=== PATIENT | female | born 1960 | race African-American/Black ===

== ENCOUNTER 2017-07-01 19:07 | Emergency (ER) | payer MEDICARE, MEDICAID ==
[2017-07-01] MEDS ORDERED: FUROSEMIDE 40 MG/4 ML VIAL. IVP (20:15)
[2017-07-01 21:15] LABS: ADD MAN DIFF? NO
[2017-07-01 21:24] LABS: BASO % 1 % (0-3); EOS # 0.2 x10^3/uL (0.0-0.7); EOS % 3 % (0-3); HEMATOCRIT 37.8 % (36.0-47.0); HEMOGLOBIN 12.3 g/dL (12.0-15.5); LYMPH # 2.8 x10^3/uL (1.0-4.8); LYMPH % 42 % (24-48); MEAN CORPUSCULAR HEMOGLOBIN 28 pg (25-35); MEAN CORPUSCULAR HGB CONC 33 g/dL (31-37); MEAN CORPUSCULAR VOLUME 85 fL (79-100); MONO # 0.5 x10^3/uL (0.0-1.1); MONO % 8 % (0-9); NEUT # 3.1 x10^3uL (1.8-7.7); NEUT % 46 % (31-73); PLATELET COUNT 152 x10^3/uL (140-400); RED BLOOD COUNT 4.45 x10^6/uL (3.50-5.40); RED CELL DISTRIBUTION WIDTH 14.3 % (11.5-14.5); WHITE BLOOD COUNT 6.8 x10^3/uL (4.0-11.0)
[2017-07-01 21:26] LABS: ANION GAP 7 (6-14); BLOOD UREA NITROGEN 17 mg/dL (7-20); BUN/CREATININE RATIO 17 (6-20); CARBON DIOXIDE 29 mmol/L (21-32); CHLORIDE 104 mmol/L (98-107); GFR 69.4; GLUCOSE 95 mg/dL (70-99); POTASSIUM 3.6 mmol/L (3.5-5.1); SODIUM 140 mmol/L (136-145)
[2017-07-01 21:32] LABS: ALBUMIN/GLOBULIN RATIO 0.9 (1.0-1.7); ALK PHOS 121 U/L (46-116); ALT (SGPT) 22 U/L (14-59); AST (SGOT) 20 U/L (15-37); TOTAL BILIRUBIN 0.3 mg/dL (0.2-1.0); TOTAL PROTEIN 8.3 g/dL (6.4-8.2)
[2017-07-01 21:35] LABS: TROPONINI < 0.017 ng/mL (0.000-0.055)
[2017-07-01 21:37] LABS: NT-PRO BNP 80 pg/mL (0-124)
[2017-07-01 21:51] LABS: INFLUENZA A PATIENT NEGATIVE (NEGATIVE); INFLUENZA B PATIENT NEGATIVE (NEGATIVE); OBC FLU VALID
== END 2017-07-01 22:47 | disposition left against medical advice (07) ==
LOC: ER 22:47
DX: E87.70 Fluid overload, unspecified (principal); I11.0 Hypertensive heart disease with heart failure; I50.9 Heart failure, unspecified; Z95.5 Presence of coronary angioplasty implant and graft; Z88.0 Allergy status to penicillin; Z88.4 Allergy status to anesthetic agent
CPT/HCPCS: 36415; 71046; 80053; 83880; 84484; 85025; 87804; 87804-59; 93005; 99285-25

== ENCOUNTER 2019-10-26 11:48 | Inpatient (IN) | payer OTHER, MEDICAID ==
[2019-10-26] VITALS (12 sets, daily range): BP systolic 96–156; BP diastolic 66–96
[~2019-10-26] VITALS: Ht 160 cm; Wt 92.6 kg
[~2019-10-26 11:48] MED LIST: ASPI-482 PO; ATOR20TA58 PO; ATOR80TA72 PO; BUME1TAB3 PO; BUME2TAB3 PO; CARV25TA2 PO; IVAB7.5T PO; LOSA-73 PO; POTA10TA6 PO; POTASSIUM CHLO10 ME1 PO; SACU1TAB4 PO; SERT50TA PO; SPIR25TA5 PO; VENTOLIN HFA18 GM IH
[2019-10-26] MEDS ORDERED: EPINEPHrine SYRINGE 1 MG/10 ML SYRINGE ONE (12:00)
[2019-10-26] MEDS ORDERED: NITROGLYCERIN PREMIX 250 ML IV ONE ×2 (12:18→12:30)
[2019-10-26] MEDS ORDERED: ETOMIDATE 20 MG/10 ML VIAL. IV ONE (12:30)
[2019-10-26] MEDS ORDERED: fentaNYL PF VIAL 100 MCG/2 ML VIAL IVP ONE (12:30)
[2019-10-26] MEDS ORDERED: ROCURONIUM 100 MG/10 ML VIAL. IV ONE (12:30)
[2019-10-26 12:38] LABS: ISTAT BE VENOUS -10 mmol/L (0-3); ISTAT HCO3 VEN 22 mmol/L (24-28); ISTAT PCO2 VEN 105 mmHg (41-51); ISTAT PH VEN 6.93 (7.32-7.42); ISTAT PO2 VEN 52 mmHg (20-40); ISTAT SAT O2 VEN 60 %; ISTAT TCO2 VEN 25 mmol/L (21-32)
[2019-10-26 12:43] LABS: BASO # 0.1 x10^3/uL (0.0-0.2); BASO % 1 % (0-3); EOS # 0.1 x10^3/uL (0.0-0.7); EOS % 1 % (0-3); HEMATOCRIT 49.1 % (36.0-47.0); HEMOGLOBIN 15.7 g/dL (12.0-15.5); LYMPH # 4.3 x10^3/uL (1.0-4.8); LYMPH % 42 % (24-48); MEAN CORPUSCULAR HEMOGLOBIN 28 pg (25-35); MEAN CORPUSCULAR HGB CONC 32 g/dL (31-37); MEAN CORPUSCULAR VOLUME 88 fL (79-100); MONO # 0.8 x10^3/uL (0.0-1.1); MONO % 8 % (0-9); NEUT # 5.1 x10^3/uL (1.8-7.7); NEUT % 49 % (31-73); PLATELET COUNT 198 x10^3/uL (140-400); RED BLOOD COUNT 5.59 x10^6/uL (3.50-5.40); RED CELL DISTRIBUTION WIDTH 14.7 % (11.5-14.5); WHITE BLOOD COUNT 10.4 x10^3/uL (4.0-11.0)
[2019-10-26] MEDS ORDERED: PROPOFOL 10 MG/ML (20ML) VIAL. IV ONE (12:45)
[2019-10-26] MEDS ORDERED: FUROSEMIDE 40 MG/4 ML VIAL. IVP ONE ×2 (12:45→15:00)
[2019-10-26 12:46] LABS: BASE EXCESS COOX -17 mmol/L (-3-3); HCO3 COOX 17 mmol/L (21-28); METHEMOGLOBIN 0.5 % (0.0-1.9); PO2 COOX 66 mmHg (75-108); SAT O2 COOX 79 % (92-99)
[2019-10-26 12:50] LABS: PCO2 COOX 81 mmHg (35-46)
[2019-10-26 12:56] LABS: CALCIUM 9.4 mg/dL (8.5-10.1); CREATININE 1.2 mg/dL (0.6-1.0); GFR 55.8; POTASSIUM 4.3 mmol/L (3.5-5.1)
[2019-10-26] MEDS ORDERED: PROPOFOL 50 ML IV ONE ×2 (12:57→13:15)
[2019-10-26 13:00] LABS: ALBUMIN 4.3 g/dL (3.4-5.0); ALBUMIN/GLOBULIN RATIO 0.8 (1.0-1.7); TOTAL BILIRUBIN 0.8 mg/dL (0.2-1.0); TOTAL PROTEIN 9.5 g/dL (6.4-8.2)
--- NOTE | 2019-10-26 13:01 | RAD ---
Chest one view, abdomen one view. HISTORY: Short of breath AP chest AP view was taken of the chest. There are diffuse bilateral infiltrates from pneumonia or pulmonary edema. Heart is normal in size. Right pacemaker unchanged. A definite pleural effusion is not identified. NG tube extends into the abdomen. AP abdomen Single view of the of the abdomen shows an NG tube in good position. Bowel pattern of the upper abdomen is unremarkable. IMPRESSION: 1. Diffuse lung disease from pneumonia or pulmonary edema. 2. NG tube in the stomach. Electronically signed by: Siddharth Gentile MD (10/26/2019 12:58 PM) [id number]
[2019-10-26] MEDS ORDERED: VECURONIUM BOLUS 10 MG VIAL. IV ONE (13:08)
[2019-10-26] MEDS ORDERED: ROCURONIUM 50 MG/5 ML VIAL. ONE (13:09)
[2019-10-26] MEDS ORDERED: SUCCINYLCHOLINE 200 MG/10 ML VIAL. ONE (13:10)
[2019-10-26] MEDS ORDERED: IOHEXOL 350 MG/ML 100 ML VIAL. IV ONE (13:30)
[2019-10-26] MEDS ORDERED: CONTRAST GIVEN. MC PRN (13:30)
--- NOTE | 2019-10-26 14:04 | PHYS DOC ---
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 Patient is a 50-year-old female with PMH heart failure who presents with a chief complaint of respiratory distress. Paramedics were called to the patient's house for respiratory distress. They state on arrival the patient was satting approximately 60%. They placed her on CPAP they stated. They state however she slowly declined her oxygenation in route. They state that she has become more somnolent as well in route. They state that they have noticed foaming at the mouth. No signs of seizure-like activity. No meds administered prior to arrival. No further history can be o btained from the patient secondary to her altered mentation and respiratory failure. Review of Systems: Review of Systems: Review of symptoms unobtainable secondary to patient's altered mental status and severity of complaint Heart Score: Risk Factors: Risk Factors: DM, Current or recent (<one month) smoker, HTN, HLP, family his tory of CAD, obesity. Risk Scores: Score 0 - 3: 2.5% MACE over next 6 weeks - Discharge Home Score 4 - 6: 20.3% MACE over next 6 weeks - Admit for Clinical Observation Score 7 - 10: 72.7% MACE over next 6 weeks - Early Invasive Strategies Current Medications: Current Medications Medications (Trade) Dose Ordered Sig/Marilee Start Time Stop Time Status Last Admin Dose Admin Etomidate (Amidate) 20 mg 1X ONCE 10/26/19 12:30 10/26/19 12:31 DC 10/26/19 12:05 20 MG Fentanyl Citrate (Fentanyl 2ml Vial) 50 mcg 1X ONCE 10/26/19 12:30 10/26/19 12:31 DC 10/26/19 12:18 50 MCG Furosemide (Lasix) 40 mg 1X ONCE 10/26/19 12:45 10/26/19 12:46 DC 10/26/19 13:03 40 MG Info (CONTRAST GIVEN -- Rx MONITORING) 1 each PRN DAILY PRN 10/26/19 13:30 10/28/19 13:29 Iohexol (Omnipaque 350 Mg/ml) 90 ml 1X ONCE 10/26/19 13:30 10/26/19 13:31 DC Nitroglycerin/ Dextrose 250 ml @ 0 mls/hr 1X ONCE 10/26/19 12:30 10/26/19 12:31 DC 10/26/19 12:26 6 MLS/HR Propofol 50 ml @ 0 mls/hr 1X ONCE 10/26/19 13:15 10/26/19 13:16 DC 10/26/19 13:07 5 MLS/HR Propofol (Diprivan) 200 mg 1X ONCE 10/26/19 12:45 10/26/19 12:46 Cancel Rocuronium [place] (Zemuron) 50 mg STK-MED ONCE 10/26/19 13:09 10/26/19 13:09 DC Succinylcholine Chloride (Anectine) 200 mg STK-MED ONCE 10/26/19 13:10 10/26/19 13:10 DC Vecuronium [place] (Norcuron Bolus) 10 mg STK-MED ONCE 10/26/19 13:08 10/26/19 13:08 DC Allergies: Allergies: Allergies Coded Allergies Type Severity Reaction Last Updated Verified Anesthetics - Amide Type Allergy Severe Anaphylaxis 07/01/17 Yes Penicillins Allergy Mild Nausea 07/01/17 Yes Physical Exam: PE: Constitutional: Toxic. Acute distress. Respiratory failure. HENT: Normocephalic, atraumatic, bilateral external ears normal, oropharynx moist, no oral exudates, nose normal. [] Eyes: PERRLA, EOMI, conjunctiva normal, no discharge. [] Neck: Normal range of motion, no tenderness, supple, no stridor. [] Cardiovascular: Tachycardic. Regular. Lungs & Thorax: Foam noted at mouth. Approximately 25% on room air. Not tachypneic. Rales noted in all lung de [place]. CPAP in place. Abdomen: soft, no tenderness, no masses, no pulsatile masses. [] Skin: Warm, dry, no erythema, no rash. [] Back: No tenderness, no CVA tenderness. [] Extremities: +1 and 4 pitting edema in the extremities bilaterally. Neurologic: Somnolent. GCS: E4V1M1 (7). Current Patient Data: Labs: Laboratory Tests Test 10/26/19 11:57 10/26/19 12:25 10/26/19 12:33 White Blood Count 10.4 x10^3/uL (4.0-11.0) Red Blood Count 5.59 x10^6/uL (3.50-5.40) H Hemoglobin 15.7 g/dL (12.0-15.5) H Hematocrit 49.1 % (36.0-47.0) H Mean Corpuscular Volume 88 fL (79-100) Mean Corpuscular Hemoglobin 28 pg (25-35) Mean Corpuscular Hemoglobin Concent 32 g/dL (31-37) Red Cell Distribution Width 14.7 % (11.5-14.5) H Platelet Count 198 x10^3/uL (140-400) Neutrophils (%) (Auto) 49 % (31-73) Lymphocytes (%) (Auto) 42 % (24-48) Monocytes (%) (Auto) 8 % (0-9) Eosinophils (%) (Auto) 1 % (0-3) Basophils (%) (Auto) 1 % (0-3) Neutrophils # (Auto) 5.1 x10^3/uL (1.8-7.7) Lymphocytes # (Auto) 4.3 x10^3/uL (1.0-4.8) Monocytes # (Auto) 0.8 x10^3/uL (0.0-1.1) Eosinophils # (Auto) 0.1 x10^3/uL (0.0-0.7) Basophils # (Auto) 0.1 x10^3/uL (0.0-0.2) Sodium Level 140 mmol/L (136-145) Potassium Level 4.3 mmol/L (3.5-5.1) Chloride Level 102 mmol/L (98-107) Carbon Dioxide Level 24 mmol/L (21-32) Anion Gap 14 (6-14) Blood Urea Nitrogen 11 mg/dL (7-20) Creatinine 1.2 mg/dL (0.6-1.0) H Estimated GFR (Cockcroft-Gault) 55.8 BUN/Creatinine Ratio 9 (6-20) Glucose Level 231 mg/dL (70-99) H Calcium Level 9.4 mg/dL (8.5-10.1) Total Bilirubin 0.8 mg/dL (0.2-1.0) Aspartate Amino Transferase (AST) 24 U/L (15-37) Alanine Aminotransferase (ALT) 23 U/L (14-59) Alkaline Phosphatase 138 U/L (46-116) H Troponin I Quantitative < 0.017 ng/mL (0.000-0.055) HQ-Qil-K-Type Natriuretic Peptide 311 pg/mL (0-124) H Total Protein 9.5 g/dL (6.4-8.2) H Albumin 4.3 g/dL (3.4-5.0) Albumin/Globulin Ratio 0.8 (1.0-1.7) L O2 Saturation 79 % (92-99) L Arterial Blood pH 6.94 (7.35-7.45) *L Arterial Blood pCO2 at Patient Temp 81 mmHg (35-46) *H Arterial Blood pO2 at Patient Temp 66 mmHg (75-108) L Arterial Blood HCO3 17 mmol/L (21-28) L Arterial Blood Base Excess -17 mmol/L (-3-3) L Oxyhemoglobin 78.0 % Methemoglobin 0.5 % (0.0-1.9) Carbon Monoxide, Quantitative 0.2 % (0.0-1.9) FiO2 100 POC Venous pH 6.93 (7.32-7.42) L POC Venous pCO2 105 mmHg (41-51) H POC Venous pO2 52 mmHg (20-40) H Venous Blood HCO3 22 mmol/L (24-28) L POC Venous O2 Saturation (Cristian) 60 % POC FiO2 100.0 Laboratory Tests 10/26/19 11:57 Laboratory Tests 10/26/19 11:57 Vital Signs: Vital Signs Date Time Temp Pulse Resp B/P (MAP) Pulse Ox O2 Delivery O2 Flow Rate FiO2 10/26/19 12:53 79 Ventilator 10/26/19 12:19 153 20 EKG: EKG: EKG consistent with sinus tachycardia. Ventricular 137 bpm noted. No acute ST segment elevation appreciated. Intervals otherwise normal. Left axis deviation present. [] Radiology/Procedures: Radiology/Procedures: Indication: Acute hypoxic and hypercapnic respiratory failure Consent: Unable to give consent due to emergent nature. Medications Used: see nursing note Procedure: The patient was placed in the appropriate position. Intubation was performed. Ferdinand scope 3 blade. 7.5 ET tube. Vocal cords visualized. Cricoid pressure aided. Endotracheal tube. 25 cm. Initial confirmation of placement included bilateral breath sounds, tube fogging, adequate chest rise, adequate pulse oximetry reading. A chest x-ray to verify correct placement of the tube showed appropriate tube position. The patient tolerated the procedure well. Complications: Copious amounts of frothy sputum noted in upper airway. Patient did lose pulses for approximately 30 seconds during intubation. ET tube passed during intubation. Immediate color change noted. Bilateral breath sounds auscultated. Indication: Vascular access Consent: Emergency consent Procedure: The patient was positioned appropriately and the skin over the right internal jugular was prepped and draped in a sterile fashion. Local anesthesia was used. Ultrasound guidance utilized. A large bore needle was used to identify the vein. A guide wire was then inserted into the vein through the needle. A triple lumen catheter was then inserted into the vessel over the guide wire using the Seldinger technique. All ports showed good, free flowing blood return and were flushed with saline solution. The catheter was then securely fastened to the skin with sutures and covered with a sterile dressing. A post p rocedure X-ray was ordered. The patient tolerated the procedure well. Complications: none. Course & Med Decision Making: Course & Med Decision Making Pertinent Labs and Imaging studies reviewed. (See chart for details) Patient is a 58-year-old female who presents with chief complaint of respiratory distress. Upon arrival with CPAP in place patient was satting at approximately 25%. She was somnolent and altered. Emergent intubation was performed. Patient did lose pulses for approximately 30 seconds during intubation. No shocks were administered. 1 mg of epinephrine was administered. She did regain heart rate after approximately 30 seconds of CPR. Patient did have copious amounts of frothy sputum in her upper airway during intubation. Chest x-ray does confirm endotracheal tube placement. Diffuse bilateral patchy opacities. Clinically I do feel this is most like related to flash pulmonary edema. However antibiotics will be started including vancomycin and cefepime. Blood cultures pending. COVID swab pending. Initial EKG did show sinus tachycardia with a rate of 137/min. Cautious nitroglycerin administration was administered to the emergency department given her bilateral pulmonary edema. Additional 40 mg IV Lasix was administered. Patient did have a brief episode of hypotension requiring norepinephrine infusion. Right internal jugular central venous catheter was also placed with emergency consent. I did update the patient's [employer]UR[employer] regarding her care. She has been stabilized in the emergency department and is appropriate for hospitalization in our ICU. Robson Disclaimer: Robson Disclaimer: This electronic medical record was generated, in whole or in part, using a voice recognition dictation system. Departure Departure Disposition: 09 ADMITTED INPATIENT Condition: IMPROVED Referrals: UNKNOWN PCP NAME (PCP) Justicifation of Admission Dx: Justifications for Admission: Justification of Admission Dx: Yes Comments: acute hypoxic respiratory failure EDUARDO RICO DO Oct 26, 2019 14:04
--- NOTE | 2019-10-26 14:22 | RAD ---
CT ANGIOGRAPHY CHEST History: Hypoxia Technique: CT of the chest was performed with intravenous contrast. PE protocol. Maximum intensity projection coronal and sagittal reconstructions were performed. Exposure: One or more of the following individualized dose reduction techniques were utilized for this examination: 1. Automated exposure control 2. Adjustment of the mA and/or kV according to patient size 3. Use of iterative reconstruction technique. Comparison: Chest x-ray October 26, 2019. Findings: Chest: No pulmonary embolism. No aortic aneurysm or dissection. Enteric tube noted. Endotracheal tube noted with tip at the level of the thoracic inlet. No pathologic lymphadenopathy. Calcified bilateral lower lobe pulmonary nodules, likely prior granulomatous disease. Diffuse bilateral groundglass opacities with right upper and bilateral lobe dense consolidations. No pleural effusion. Upper abdomen: The imaged upper abdomen is unremarkable. Bones: No pathologic osseous lesions. Impression: 1. Right upper and bilateral lower lobe dense consolidations with bilateral ground glass opacities, concerning for pneumonia, edema or ARDS. Recommend follow-up to ensure resolution. 2. Endotracheal tube with tip at the level of thoracic inlet. Recommend correlation for desired positioning. Electronically signed by: Weston Fraga DO (10/26/2019 2:19 PM) [id number]
--- NOTE | 2019-10-26 14:37 | PDOC1 ---
History and Physical Date of Admission Date of Admission DATE: 10/26/19 TIME: 14:34 Identification/Chief Complaint Chief Complaint seen in er with acute resp [id number] -year-old female with PMH heart failure who presents with a chief complaint of respiratory distress. Paramedics were called // was satting approximately 60%. They placed her on CPAP They state however she slowly declined her oxygenation in route. she has be come more somnolent as well in route. No signs of seizure-like activity. No meds administered prior to arrival. No further history can be obtained from the patient secondary to her altered mentation cta chest concerning for covid-19 features ., intubated in er, now on 12 of PEEP, coded in er., post cardiac arrest Patient did have a brief episode of hypotension requiring norepinephrine infusion. Right internal jugular central venous catheter was also placed with emergency consent. 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, ENLARGED HEART Past Surgical History: Angioplasty, Tubal ligation Smoking Status: Never Smoker Alcohol Use: None Drug Use: None fhx HTN Cardiovascular: CAD, CHF, HTN, Hyperlipidemia, Pulmonary hypertension CENTRAL NERVOUS SYSTEM: Other GI: GERD Heme/Onc: Other Endocrine: Diabetes Past Surgical History Past Surgical History: Pacemaker, Tubal Ligation Family History Family History: Hypertension Social History Smoke: No ALCOHOL: none Drugs: None Current Medications Current Medications Current Medications Nitroglycerin/ Dextrose 250 ml @ As Directed STK-MED ONCE IV ; Start 10/26/19 at 12:18; Stop 10/26/19 at 12:18; Status DC Etomidate (Amidate) 20 mg 1X ONCE IV Last administered on 10/26/19at 12:05; Start 10/26/19 at 12:30; Stop 10/26/19 at 12:31; Status DC Rocuronium [place] (Zemuron) 100 mg 1X ONCE IV Last administered on 10/26/19at 12:05; Start 10/26/19 at 12:30; Stop 10/26/19 at 12:31; Status DC Nitroglycerin/ Dextrose 250 ml @ 0 mls/hr 1X ONCE IV Last administered on 10/26/19at 12:26; Start 10/26/19 at 12:30; Stop 8/3/20 at 12:31; Status DC Fentanyl Citrate (Fentanyl 2ml Vial) 50 mcg 1X ONCE IVP Last administered on 10/26/19at 12:18; Start 10/26/19 at 12:30; Stop 10/26/19 at 12:31; Status DC Propofol (Diprivan) 200 mg 1X ONCE IV ; Start 10/26/19 at 12:45; Stop 10/26/19 at 12:46; Status Cancel Furosemide (Lasix) 40 mg 1X ONCE IVP Last administered on 10/26/19at 13:03; Start 10/26/19 at 12:45; Stop 10/26/19 at 12:46; Status DC Propofol 50 ml @ As Directed STK-MED ONCE IV ; Start 10/26/19 at 12:57; Stop 10/26/19 at 12:57; Status DC Propofol 50 ml @ 0 mls/hr 1X ONCE IV Last administered on 10/26/19at 13:07; Start 10/26/19 at 13:15; Stop 10/26/19 at 13:16; Status DC Vecuronium [place] (Norcuron Bolus) 10 mg STK-MED ONCE IV ; Start 10/26/19 at 13:08; Stop 10/26/19 at 13:08; Status DC Rocuronium [place] (Zemuron) 50 mg STK-MED ONCE .ROUTE ; Start 10/26/19 at 13:09; Stop 10/26/19 at 13:09; Status DC Succinylcholine Chloride (Anectine) 200 mg STK-MED ONCE .ROUTE ; Start 10/26/19 at 13:10; Stop 10/26/19 at 13:10; Status DC Iohexol (Omnipaque 350 Mg/ml) 90 ml 1X ONCE IV Last administered on 10/26/19at 13:30; Start 10/26/19 at 13:30; Stop 10/26/19 at 13:31; Status DC Info (CONTRAST GIVEN -- Rx MONITORING) 1 each PRN DAILY PRN MC SEE COMMENTS; Start 10/26/19 at 13:30; Stop 10/28/19 at 13:29 Vancomycin HCl 2 gm/Sodium Chloride 500 ml @ 250 mls/hr 1X ONCE IV ; Start 10/26/19 at 14:45; Stop 10/26/19 at 16:44; Status UNV Cefepime HCl (Maxipime) 1 gm 1X ONCE IVP ; Start 10/26/19 at 14:45; Stop 10/26/19 at 14:46; Status UNV Active Scripts Active Reported Entresto 97 mg-103 mg Tablet (Sacubitril/Valsartan) 1 Each Tablet 1 Each PO BID Corlanor (Ivabradine HCl) 7.5 Mg Tablet 1 Tab PO BID 30 Days Klor-Con 10 (Potassium Chloride) 10 Meq Tablet.er 1 Tab PO DAILY 30 Days Carvedilol 25 Mg Tablet 25 Mg PO BIDWMEALS Bumetanide 1 Mg Tablet 1 Tab PO DAILY Atorvastatin Calcium 80 Mg Tablet 80 Mg PO DAILY Spironolactone 25 Mg Tablet 1 Tab PO DAILY Aspir 81 (Aspirin) 81 Mg Tablet.dr 1 Tab PO DAILY Allergies Allergies: Coded Allergies: Anesthetics - Amide Type (Verified Allergy, Severe, Anaphylaxis, 07/01/17) Penicillins (Verified Allergy, Mild, Nausea, 07/01/17) ROS Review of System UNABLE TO COOPERATE, INTUBATED Respiratory: YES: Cough Physical Exam Physical Exam Constitutional: Toxic. Acute distress. Respiratory failure. HENT: Normocephalic, atraumatic, bilateral external ears normal, oropharynx moist, no oral exudates, nose normal. [] Eyes: PERRLA, EOMI, conjunctiva normal, no discharge. [] Neck: Normal range of motion, no tenderness, supple, no stridor. [] Cardiovascular: Tachycardic. Regular. Lungs & Thorax: Foam noted at mouth. Approximately 25% on room air. Not tachypneic. Rales noted in all lung de [place]. Abdomen: soft, no tenderness, no masses, no pulsatile masses. [] Skin: Warm, dry, no erythema, no rash. [] Back: No tenderness, no CVA tenderness. [] Extremities: +1 and 4 pitting edema in the extremities bilaterally. General: moderate distress HEENT: Atraumatic Heart: no thrills, no gallops Breasts: Not examined Abdomen: Soft Rectal Exam: not examined PELVIC: Examination not indicated Extremities: No cyanosis Vitals Vitals Vital Signs Date Time Temp Pulse Resp B/P (MAP) Pulse Ox O2 Delivery O2 Flow Rate FiO2 10/26/19 12:53 79 Ventilator 10/26/19 12:19 153 20 Labs Labs Laboratory Tests Test 10/26/19 11:57 10/26/19 12:25 10/26/19 12:33 White Blood Count 10.4 x10^3/uL (4.0-11.0) Red Blood Count 5.59 x10^6/uL (3.50-5.40) Hemoglobin 15.7 g/dL (12.0-15.5) Hematocrit 49.1 % (36.0-47.0) Mean Corpuscular Volume 88 fL (79-100) Mean Corpuscular Hemoglobin 28 pg (25-35) Mean Corpuscular Hemoglobin Concent 32 g/dL (31-37) Red Cell Distribution Width 14.7 % (11.5-14.5) Platelet Count 198 x10^3/uL (140-400) Neutrophils (%) (Auto) 49 % (31-73) Lymphocytes (%) (Auto) 42 % (24-48) Monocytes (%) (Auto) 8 % (0-9) Eosinophils (%) (Auto) 1 % (0-3) Basophils (%) (Auto) 1 % (0-3) Neutrophils # (Auto) 5.1 x10^3/uL (1.8-7.7) Lymphocytes # (Auto) 4.3 x10^3/uL (1.0-4.8) Monocytes # (Auto) 0.8 x10^3/uL (0.0-1.1) Eosinophils # (Auto) 0.1 x10^3/uL (0.0-0.7) Basophils # (Auto) 0.1 x10^3/uL (0.0-0.2) Sodium Level 140 mmol/L (136-145) Potassium Level 4.3 mmol/L (3.5-5.1) Chloride Level 102 mmol/L (98-107) Carbon Dioxide Level 24 mmol/L (21-32) Anion Gap 14 (6-14) Blood Urea Nitrogen 11 mg/dL (7-20) Creatinine 1.2 mg/dL (0.6-1.0) Estimated GFR (Cockcroft-Gault) 55.8 BUN/Creatinine Ratio 9 (6-20) Glucose Level 231 mg/dL (70-99) Calcium Level 9.4 mg/dL (8.5-10.1) Total Bilirubin 0.8 mg/dL (0.2-1.0) Aspartate Amino Transf (AST/SGOT) 24 U/L (15-37) Alanine Aminotransferase (ALT/SGPT) 23 U/L (14-59) Alkaline Phosphatase 138 U/L (46-116) Troponin I Quantitative < 0.017 ng/mL (0.000-0.055) VO-Skc-D-Type Natriuretic Peptide 311 pg/mL (0-124) Total Protein 9.5 g/dL (6.4-8.2) Albumin 4.3 g/dL (3.4-5.0) Albumin/Globulin Ratio 0.8 (1.0-1.7) O2 Saturation 79 % (92-99) Arterial Blood pH 6.94 (7.35-7.45) Arterial Blood pCO2 at Patient Temp 81 mmHg (35-46) Arterial Blood pO2 at Patient Temp 66 mmHg (75-108) Arterial Blood HCO3 17 mmol/L (21-28) Arterial Blood Base Excess -17 mmol/L (-3-3) Oxyhemoglobin 78.0 % Methemoglobin 0.5 % (0.0-1.9) Carbon Monoxide, Quantitative 0.2 % (0.0-1.9) FiO2 100 Bedside Venous pH 6.93 (7.32-7.42) Bedside Venous pCO2 105 mmHg (41-51) Bedside Venous pO2 52 mmHg (20-40) Venous Blood HCO3 22 mmol/L (24-28) POC Venous O2 Saturation (Cristian) 60 % Bedside FiO2 100.0 Laboratory Tests Test 10/26/19 11:57 10/26/19 12:25 10/26/19 12:33 White Blood Count 10.4 x10^3/uL (4.0-11.0) Red Blood Count 5.59 x10^6/uL (3.50-5.40) Hemoglobin 15.7 g/dL (12.0-15.5) Hematocrit 49.1 % (36.0-47.0) Mean Corpuscular Volume 88 fL (79-100) Mean Corpuscular Hemoglobin 28 pg (25-35) Mean Corpuscular Hemoglobin Concent 32 g/dL (31-37) Red Cell Distribution Width 14.7 % (11.5-14.5) Platelet Count 198 x10^3/uL (140-400) Neutrophils (%) (Auto) 49 % (31-73) Lymphocytes (%) (Auto) 42 % (24-48) Monocytes (%) (Auto) 8 % (0-9) Eosinophils (%) (Auto) 1 % (0-3) Basophils (%) (Auto) 1 % (0-3) Neutrophils # (Auto) 5.1 x10^3/uL (1.8-7.7) Lymphocytes # (Auto) 4.3 x10^3/uL (1.0-4.8) Monocytes # (Auto) 0.8 x10^3/uL (0.0-1.1) Eosinophils # (Auto) 0.1 x10^3/uL (0.0-0.7) Basophils # (Auto) 0.1 x10^3/uL (0.0-0.2) Sodium Level 140 mmol/L (136-145) Potassium Level 4.3 mmol/L (3.5-5.1) Chloride Level 102 mmol/L (98-107) Carbon Dioxide Level 24 mmol/L (21-32) Anion Gap 14 (6-14) Blood Urea Nitrogen 11 mg/dL (7-20) Creatinine 1.2 mg/dL (0.6-1.0) Estimated GFR (Cockcroft-Gault) 55.8 BUN/Creatinine Ratio 9 (6-20) Glucose Level 231 mg/dL (70-99) Calcium Level 9.4 mg/dL (8.5-10.1) Total Bilirubin 0.8 mg/dL (0.2-1.0) Aspartate Amino Transf (AST/SGOT) 24 U/L (15-37) Alanine Aminotransferase (ALT/SGPT) 23 U/L (14-59) Alkaline Phosphatase 138 U/L (46-116) Troponin I Quantitative < 0.017 ng/mL (0.000-0.055) XT-Jcw-I-Type Natriuretic Peptide 311 pg/mL (0-124) Total Protein 9.5 g/dL (6.4-8.2) Albumin 4.3 g/dL (3.4-5.0) Albumin/Globulin Ratio 0.8 (1.0-1.7) O2 Saturation 79 % (92-99) Arterial Blood pH 6.94 (7.35-7.45) Arterial Blood pCO2 at Patient Temp 81 mmHg (35-46) Arterial Blood pO2 at Patient Temp 66 mmHg (75-108) Arterial Blood HCO3 17 mmol/L (21-28) Arterial Blood Base Excess -17 mmol/L (-3-3) Oxyhemoglobin 78.0 % Methemoglobin 0.5 % (0.0-1.9) Carbon Monoxide, Quantitative 0.2 % (0.0-1.9) FiO2 100 Bedside Venous pH 6.93 (7.32-7.42) Bedside Venous pCO2 105 mmHg (41-51) Bedside Venous pO2 52 mmHg (20-40) Venous Blood HCO3 22 mmol/L (24-28) POC Venous O2 Saturation (Cristian) 60 % Bedside FiO2 100.0 Images Images Chest one view, abdomen one view. HISTORY: Short of breath AP chest AP view was taken of the chest. There are diffuse bilateral infiltrates from pneumonia or pulmonary edema. Heart is normal in size. Right pacemaker unchanged. A definite pleural effusion is not identified. NG tube extends into the abdomen. AP abdomen Single view of the of the abdomen shows an NG tube in good position. Bowel pattern of the upper abdomen is unremarkable. IMPRESSION: 1. Diffuse lung disease from pneumonia or pulmonary edema. 2. NG tube in the stomach. Electronically signed by: Siddharth Gentile MD (10/26/2019 12:58 PM) [id number] DICTATED and SIGNED BY: SIDDHARTH GENTILE MD Aortic Valve AoV Peak Daryl. 139.4cm/s AoV VTI 22.9cm AO Peak GR. 7.8mmHg LVOT VTI 16.13cm AO Mean GR. 5mmHg Mitral Valve MV E Velocity 88.0cm/s MV E Peak Gr. 4mmHg MV DECEL TIME 137ms MV A Velocity 69.5cm/s MV E Mean Gr. 2mmHg E/A Ratio 1.3 TDI Lateral E' P. V 7.85cm/s Medial E' P. V 6.69cm/s E/Lateral E' 11.2 E/Medial E' 13.2 Tricuspid Valve TR P. Velocity 289cm/s RAP ESTIMATE 3mmHg TR Peak Gr. 33mmHg RVSP 36mmHg Pulmonary Vein S1 Velocity 30.0cm/s S2 Velocity 50.66cm/s D2 Velocity 50.7cm/s PVa duration 90msec LEFT VENTRICLE The left ventricle is normal size. There is normal left ventricular wall thickness. The left ventricular systolic function is moderately impaired. EF 30- 35% There is moderate global hypokinesis Transmitral Doppler flow pattern is Grade II-pseudonormal filling dynamics. RIGHT VENTRICLE The right ventricle is normal size. There is normal right ventricular wall thickness. The right ventricular systolic function is normal. There is a pacemaker lead in the right ventricle. ATRIA The left atrium size is normal. The right atrium size is normal. There is a pacemaker lead seen in the right atrium. The interatrial septum is intact with no evidence for an atrial septal defect or patent foramen ovale as noted on 2-D or Doppler imaging. AORTIC VALVE The aortic valve is thickened but opens well. Doppler and Color Flow revealed no significant aortic regurgitation. There is no significant aortic valvular stenosis. MITRAL VALVE The mitral valve is normal in structure and function. There is no evidence of mitral valve prolapse. There is no mitral valve stenosis. Doppler and Color-flow revealed trace mitral regurgitation. TRICUSPID VALVE The tricuspid valve is not well visualized. Doppler and Color Flow revealed trace tricuspid regurgitation with an estimated PAP of 36 mmHg. There is no tricuspid valve stenosis. PULMONIC VALVE The pulmonic valve is not well visualized. Doppler and Color Flow revealed no pulmonic valvular regurgitation. GREAT VESSELS The aortic root is normal in size. The IVC is normal in size and collapses >50% with inspiration. PERICARDIAL EFFUSION There is no evidence of significant pericardial effusion. Critical Notification Critical Value: No <Conclusion> The left ventricular systolic function is moderately impaired. EF 30-35% There is moderate global hypokinesis There is a pacemaker lead in the right ventricle. Signed by : Dharmesh Victor, Electronically Approved : 03/09/2019 15:20:02 DICTATED and SIGNED BY: DHARMESH VICTOR MD DATE: 03/09/[address] ANGIOGRAPHY CHEST History: Hypoxia Technique: CT of the chest was performed with intravenous contrast. PE protocol. Maximum intensity projection coronal and sagittal reconstructions were performed. Exposure: One or more of the following individualized dose reduction techniques were utilized for this examination: 1. Automated exposure control 2. Adjustment of the mA and/or kV according to patient size 3. Use of iterative reconstruction technique. Comparison: Chest x-ray October 26, 2019. Findings: Chest: No pulmonary embolism. No aortic aneurysm or dissection. Enteric tube noted. Endotracheal tube noted with tip at the level of the thoracic inlet. No pathologic lymphadenopathy. Calcified bilateral lower lobe pulmonary nodules, likely prior granulomatous disease. Diffuse bilateral groundglass opacities with right upper and bilateral lobe dense consolidations. No pleural effusion. Upper abdomen: The imaged upper abdomen is unremarkable. Bones: No pathologic osseous lesions. Impression: 1. Right upper and bilateral lower lobe dense consolidations with bilateral ground glass opacities, concerning for pneumonia, edema or ARDS. Recommend follow-up to ensure resolution. 2. Endotracheal tube with tip at the level of thoracic inlet. Recommend correlation for desired positioning. Electronically signed by: Weston Fraga DO (10/26/2019 2:19 PM) [id number] DICTATED and SIGNED BY: WESTON FRAGA DO VTE Prophylaxis Ordered VTE Prophylaxis Devices: Contraindicated VTE Pharmacological Prophylaxi: Yes Assessment/Plan Assessment/Plan Impression: 1. Right upper and bilateral lower lobe dense consolidations with bilateral ground glass opacities, concerning for pneumonia, edema or ARDS. 2. Acute hypercapnic, hypoxic resp failure 3. CARDIOMYOPATHY ON ECHO 2018, left ventricular systolic function is moderately impaired. EF 30-35% moderate global hypokinesis pacemaker lead in the right ventricle. 4. post cardiac arrest in er 5. Cardiogenic shock plan admit icu bed consult PULM MED VENT SUPPORT IV STEROIDS Nebulized budesonide bid dvt prophylaxis gi prophylaxis , iv pepsid consult cardiology pressors prn ECHO 34 min cc time Justicifation of Admission Dx: Justifications for Admission: Justification of Admission Dx: Yes CHF: Cardiac Arrhythmias Respiratory Failure: Mechanical Ventilation Aspiration Pneumonia: Hemodynamic Instability Sepsis: Altered Mental Status Altered Mental Status: Altered Mental Status PIYUSH HOLDEN MD Oct 26, 2019 14:37
[2019-10-26] MEDS ORDERED: VANCOMYCIN 2 GM in IV NORMAL SALINE 500ML BAG 500 ML IV ONE (14:45)
[2019-10-26] MEDS ORDERED: CEFEPIME HCL IV Push 1 GM VIAL. IVP ONE (14:45)
[2019-10-26] MEDS ORDERED: NOREPINEPHRINE VIAL 8 MG in IV DEXTROSE 5% 250 ML IV ONE (14:45)
[2019-10-26] MEDS: HEPARIN for SUB-Q USE 5,000 UNIT/ML VIAL. SQ SCH ×3 (15:00→22:00)
[2019-10-26] MEDS ORDERED: ONDANSETRON PF 4 MG/2 ML VIAL. IVP PRN ×2 (15:00→21:45)
[2019-10-26] MEDS ORDERED: 0.9 % SODIUM CHLORIDE 10 ML DISP.SYRIN. IV PRN ×2 (15:00→21:45)
[2019-10-26] MEDS ORDERED: PROCHLORPERAZINE 10 MG/2 ML VIAL. IVP PRN (15:00)
[2019-10-26] MEDS: methylPREDNISolone SOD SUCC PF 125 MG/2 ML VIAL. IV SCH ×2 (15:32→21:30)
--- NOTE | 2019-10-26 15:36 | RAD ---
EXAM: PORTABLE CHEST 1V INDICATION: Reason: confirm RIJ / Spl. Instructions: / History: . TECHNIQUE: Single upright view COMPARISON: 10/26/2019 at 12:02 PM chest x-ray FINDINGS: New right jugular approach central venous catheter with tip not well seen due to overlap with right-sided cardiac pacemaker leads but suspected to terminate in the proximal SVC. Endotracheal intubation remains present with ET tube tip terminating 4.7 cm above the aditi. Enteric tube passes below the diaphragms. Right subclavian approach multichamber AICD remains present, leads in the right atrium, right ventricle and coronary sinus. The heart size is normal. The great vessels appear unremarkable. There is no hilar or mediastinal mass. Lungs show slight interval improvement in bilateral confluent airspace opacities in a batwing-like distribution. There is no pleural effusion or pneumothorax. There are no significant osseous abnormalities. IMPRESSION: Right jugular approach central venous catheter with the tip slightly obscured by pacemaker wires but likely in the proximal SVC. No pneumothorax Electronically signed by: Elsi Ware MD (10/26/2019 3:33 PM) [id number]
[2019-10-26] MEDS: MIDAZOLAM 100mg/100ml NS BAG 100 ML IV PRN (16:33)
[2019-10-26] MEDS: CARVEDILOL 12.5 MG TABLET. PO SCH (17:00)
[2019-10-26 17:18] LABS: BASE EXCESS ABG -8 mmol/L (-3-3); HCO3 ABG 17 mmol/L (21-28); PCO2 ABG 30 mmHg (35-46); PO2 ABG 231 mmHg (75-108); SAT O2 ABG 100 % (92-99)
[2019-10-26 17:24] LABS: FIO2 ABG 100
[2019-10-26] MEDS ORDERED: SODIUM BICARB ADULT 8.4% 50 MEQ/50 ML DISP.SYRIN. IV ONE (17:30)
[2019-10-26] MEDS ORDERED: levOFLOXacin PER PHARMACY. MC PRN (18:30)
--- NOTE | 2019-10-26 18:41 | CONS ---
DATE OF CONSULTATION: PULMONARY CONSULTATION ATTENDING PHYSICIAN: Dr. Covarrubias. REASON FOR CONSULTATION: Respiratory failure, status post CPR, cardiac arrest. HISTORY OF PRESENT ILLNESS: The patient is a 58-year-old morbidly obese female with a BMI of 37. She has history of cardiomyopathy with an EF of 30% based on echo from 02/2019. At that time, she was admitted for congestive heart failure as well. She was brought in to the hospital after paramedics were called for a complaint of respiratory distress. When paramedics arrived, her saturations were in the 60s. They placed her on CPAP. However, she declined her oxygenation status en route and by the time she arrived at the Emergency Room, she was somnolent. She had no obvious seizure-like activity. She was intubated by the ER physician. The patient's chest x-ray revealed diffuse bilateral infiltrates consistent with CHF. No significant pleural effusion seen. Her ABGs initially showed a pH of 6.9, pCO2 of 81 and a pO2 of 66 with bicarbonate of 17 on 100% FiO2. The patient lost her pulse and had one round of CPR. She did regain her spontaneous circulation. She was subsequently intubated. She had followup ABGs which showed a pH of 7.36, pCO2 of 30 and a pO2 of 231 with a bicarbonate of 17. This was on 100% oxygen and 12 of PEEP. She underwent CTA chest, which was reviewed by me. There is no evidence of pulmonary embolism. There is evidence of consolidation in the right upper lobe and lower lobes and also some ground-glass opacities consistent with CHF. In addition, she has suspected aspiration as well. Initially, patient was hypertensive with a systolic blood pressure in the 200s. She was started on nitro drip. However, by the time she arrived in the ICU, she became hypotensive. Nitro was stopped and she was started on low-dose Levophed. She is currently on assist control rate of 18, tidal volume 500 and 100% FiO2 and 12 of PEEP. PAST MEDICAL HISTORY: Significant for cardiomyopathy with an EF of 30%, history of secondary pulmonary hypertension, history of mild mental retardation, history of tumor in the head, details unknown. Constipation, hypertension. PAST SURGICAL HISTORY: Angioplasty and tubal ligation. SOCIAL HISTORY: Nonsmoker. FAMILY HISTORY: Hypertension. ALLERGIES: ANESTHETICS AND PENICILLINS. MEDICATIONS: Reviewed as listed in the MRAD. REVIEW OF SYSTEMS: Unable to obtain from the patient. PHYSICAL EXAMINATION: VITAL SIGNS: Reviewed. Latest blood pressure in the high 90s on very low dose of Levophed. Afebrile, pulse ox is 100%. GENERAL: The visual exam was done via telemedicine. She appears to be in no obvious respiratory distress. The patient was having no paradoxical breathing. EXTREMITIES: With trace pitting edema. LABORATORY DATA: Reviewed. ABGs are discussed in my history of present illness. BUN 11, creatinine 1.2. Lactic acid 5.7, albumin 4.3. White cell count 10.4, hemoglobin 15.7 and platelets are 190. IMPRESSION: 1. Acute hypoxic and hypercapnic respiratory failure secondary to cardiac arrest and likely cardiogenic shock. 2. Diffuse lung infiltrates. Combination of congestive heart failure and aspiration pneumonia. CT chest shows consolidation in the right upper lobe and lower lobes, which may be related to aspiration of secretions. 3. Brief CPR with one round of ACLS protocol. 4. History of known cardiomyopathy with an EF of 30%. 5. No significant tobacco history. 6. Lactic acidosis secondary to hypotension and diminished perfusion. RECOMMENDATIONS: 1. We will continue with present assist control mode. I would wean the PEEP down to 8, that should improve blood pressure. I would also slowly wean FiO2, keep saturation 94 and above. 2. Follow the response of diuresis. 3. Wean off Levophed. 4. Follow cardiology recommendations. 5. Suspicion for COVID is less. We will await for the results. 6. Follow cardiology recommendations. 7. Obtain echocardiogram. 8. Continue mild sedation. 9. Discussed with RN, discussed with RT. This patient was consulted via telemedicine during the time of COVID-19 pandemic. Critical care time 37 minutes including review of the chart, labs, imaging studies and decision making. AMINA ROGERS MD DR: HAMMAD/lesly JOB#: [id number] / [id number]
--- NOTE | 2019-10-26 19:23 | NUR ---
Patient admit to room 114 from ED at 1645. Patient arrived on ventilator accompanied by RT. Patient was a post code in the ED as they were intubating; 1 round of CPR and 1 of Epi given per ED nurse. Patient settled in, abg drawn, results were called to Dr Bassett. Orders received for Vent settings AC 18/Vt 500/peep 8/O2 90%. Orders to titrate O2 according to sats and to turn sedation down at 0500 on 10/26 for a SBT tomorrow. Patient currently on low dose Levophed and is V paced on the monitor. Report given office automation clerk nurse Veronica Cortés.
[2019-10-26] MEDS: SACUBITRIL/VALSARTAN 49/51MG TABLET. PO SCH (19:38)
[2019-10-26] MEDS: DOCUSATE SODIUM 100 MG CAPSULE. PO SCH (19:43)
[2019-10-26] MEDS: FAMOTIDINE 20 MG/2 ML VIAL IVP SCH (21:30)
[2019-10-26] MEDS: ATORVASTATIN CALCIUM 40 MG TABLET. PO SCH (21:31)
[2019-10-26] MEDS ORDERED: BISACODYL 10 MG SUPP.RECT. PR PRN (21:45)
[2019-10-27] VITALS (28 sets, daily range): BP systolic 74–212; BP diastolic 52–98
--- NOTE | 2019-10-27 05:02 | RAD ---
INDICATION: Reason: RF/CHF 114 / Spl. Instructions: / History: COMPARISON: One day prior FINDINGS: Single view of chest obtained. Endotracheal tube near thoracic inlet. Enteric tube is seen coursing towards diaphragm. Right-sided vascular catheter is seen coursing into the expected location of the SVC. AICD is again seen. Repeat demonstration of hazy groundglass opacities in the bilateral lungs which appears slightly decreased from prior. IMPRESSION: * Overall slight decrease in groundglass opacities bilaterally which could be from edema or infiltrate. Electronically signed by: Carlos Dunham MD (10/27/2019 4:59 AM) [id number]
[2019-10-27] MEDS: methylPREDNISolone SOD SUCC PF 125 MG/2 ML VIAL. IV SCH ×3 (06:07→21:58)
[2019-10-27] MEDS: HEPARIN for SUB-Q USE 5,000 UNIT/ML VIAL. SQ SCH ×3 (06:08→21:57)
[2019-10-27 06:53] LABS: ALBUMIN 2.9 g/dL (3.4-5.0); ALBUMIN/GLOBULIN RATIO 0.8 (1.0-1.7); CALCIUM 8.4 mg/dL (8.5-10.1); CREATININE 1.8 mg/dL (0.6-1.0); POTASSIUM 3.4 mmol/L (3.5-5.1); TOTAL BILIRUBIN 1.6 mg/dL (0.2-1.0); TOTAL PROTEIN 6.6 g/dL (6.4-8.2)
--- NOTE | 2019-10-27 07:12 | EKG ---
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
[2019-10-27] MEDS: MIDAZOLAM 100mg/100ml NS BAG 100 ML IV PRN (07:21)
[2019-10-27 07:36] LABS: BASO % 0 % (0-3); EOS % 0 % (0-3); HEMATOCRIT 35.4 % (36.0-47.0); HEMOGLOBIN 11.6 g/dL (12.0-15.5); LYMPH % 6 % (24-48); MEAN CORPUSCULAR HEMOGLOBIN 28 pg (25-35); MEAN CORPUSCULAR HGB CONC 33 g/dL (31-37); MEAN CORPUSCULAR VOLUME 85 fL (79-100); MONO # 0.5 x10^3/uL (0.0-1.1); MONO % 3 % (0-9); NEUT # 14.3 x10^3/uL (1.8-7.7); NEUT % 90 % (31-73); PLATELET COUNT 124 x10^3/uL (140-400); RED BLOOD COUNT 4.17 x10^6/uL (3.50-5.40); RED CELL DISTRIBUTION WIDTH 13.9 % (11.5-14.5); WHITE BLOOD COUNT 15.8 x10^3/uL (4.0-11.0)
[2019-10-27 07:43] LABS: PROTHROMBIN TIME PATIENT 16.5 SEC (11.7-14.0)
[2019-10-27] MEDS: CARVEDILOL 12.5 MG TABLET. PO SCH ×2 (07:59→17:00)
[2019-10-27] MEDS: POTASSIUM CHLORIDE 10 MEQ TABLET.ER. PO SCH (08:00)
[2019-10-27 08:44] LABS: BASE EXCESS ABG -2 mmol/L (-3-3); HCO3 ABG 19 mmol/L (21-28); PCO2 ABG 23 mmHg (35-46); PO2 ABG 165 mmHg (75-108); SAT O2 ABG 99 % (92-99)
--- NOTE | 2019-10-27 08:47 | PDOC ---
[employer] PROGRESS NOTE Date of Service DOS: DATE: 10/27/19 TIME: 08:42 Chief Complaint Chief Complaint A/P: Right upper and bilateral lower lobe dense consolidations with bilateral ground glass opacities, concerning for pneumonia, edema or ARDS. Acute hypercapnic, hypoxic resp failure CARDIOMYOPATHY ON ECHO 2018, left ventricular systolic function is moderately impaired. EF 30-35% moderate global hypokinesis pacemaker lead in the right ventricle. 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 Chest x-ray revealed diffuse bilateral infiltrates consistent with CHF. No significant pleural effusion seen. Her ABGs initially showed a pH of 6.9, pCO2 of 81 and a pO2 of 66 with bicarbonate of 17 on 100% FiO2. The patient lost her pulse and had one round of CPR in ED, did have ROSC. She was emergently intubated and had right IJ CVC placed for pressor support. She had repeat ABGs which showed a pH of 7.36, pCO2 of 30 and a pO2 of 231 with a bicarbonate of 17. CTPA revealed no evidence of pulmonary embolism, but did show a consolidation in the right upper lobe and lower lobes and also some ground-glass opacities consistent with CHF. Noted initialy ypertensive with a systolic blood pressure in the 200s. She was started on nitro drip but quickly became hypotensive. Nitro was stopped and she was started on low-dose Levophed. Seen on vent AC mode 18, tidal volume 500 and 100% FiO2 and 12 of PEEP. Off sedation awakens to painful stimuli. Received albumin for creatinine increased to 1.8 after contrast administration yesterday. Blood pressure requiring pressor support changed to dobutamine. Vitals/I&O Vitals/I&O: Vital Signs Date Time Temp Pulse Resp B/P (MAP) Pulse Ox O2 Delivery O2 Flow Rate FiO2 10/27/19 08:16 100 Ventilator 10/27/19 07:59 92 83/63 8/4/20 06:15 18 10/27/19 04:00 97.6 97.6 I & O 10/26/19 10/26/19 10/27/19 15:00 23:00 07:00 Intake Total 275.9 ml 122.4 ml Output Total 1750 ml 255 ml Balance -1474.1 ml -132.6 ml Physical Exam General: moderate distress Lungs: Wheezing Abdomen: Soft Extremities: No cyanosis Labs Labs: Laboratory Tests Test 10/26/19 11:52 10/26/19 11:57 10/26/19 11:58 10/26/19 12:25 Ferritin 182 ng/mL (8-252) White Blood Count 10.4 x10^3/uL (4.0-11.0) Red Blood Count 5.59 x10^6/uL (3.50-5.40) Hemoglobin 15.7 g/dL (12.0-15.5) Hematocrit 49.1 % (36.0-47.0) Mean Corpuscular Volume 88 fL (79-100) Mean Corpuscular Hemoglobin 28 pg (25-35) Mean Corpuscular Hemoglobin Concent 32 g/dL (31-37) Red Cell Distribution Width 14.7 % (11.5-14.5) Platelet Count 198 x10^3/uL (140-400) Neutrophils (%) (Auto) 49 % (31-73) Lymphocytes (%) (Auto) 42 % (24-48) Monocytes (%) (Auto) 8 % (0-9) Eosinophils (%) (Auto) 1 % (0-3) Basophils (%) (Auto) 1 % (0-3) Neutrophils # (Auto) 5.1 x10^3/uL (1.8-7.7) Lymphocytes # (Auto) 4.3 x10^3/uL (1.0-4.8) Monocytes # (Auto) 0.8 x10^3/uL (0.0-1.1) Eosinophils # (Auto) 0.1 x10^3/uL (0.0-0.7) Basophils # (Auto) 0.1 x10^3/uL (0.0-0.2) Sodium Level 140 mmol/L (136-145) Potassium Level 4.3 mmol/L (3.5-5.1) Chloride Level 102 mmol/L (98-107) Carbon Dioxide Level 24 mmol/L (21-32) Anion Gap 14 (6-14) Blood Urea Nitrogen 11 mg/dL (7-20) Creatinine 1.2 mg/dL (0.6-1.0) Estimated GFR (Cockcroft-Gault) 55.8 BUN/Creatinine Ratio 9 (6-20) Glucose Level 231 mg/dL (70-99) Calcium Level 9.4 mg/dL (8.5-10.1) Total Bilirubin 0.8 mg/dL (0.2-1.0) Aspartate Amino Transf (AST/SGOT) 24 U/L (15-37) Alanine Aminotransferase (ALT/SGPT) 23 U/L (14-59) Alkaline Phosphatase 138 U/L (46-116) Troponin I Quantitative < 0.017 ng/mL (0.000-0.055) QF-Kyz-Y-Type Natriuretic Peptide 311 pg/mL (0-124) Total Protein 9.5 g/dL (6.4-8.2) Albumin 4.3 g/dL (3.4-5.0) Albumin/Globulin Ratio 0.8 (1.0-1.7) Lactic Acid Level 5.7 mmol/L (0.4-2.0) O2 Saturation 79 % (92-99) Arterial Blood pH 6.94 (7.35-7.45) Arterial Blood pCO2 at Patient Temp 81 mmHg (35-46) Arterial Blood pO2 at Patient Temp 66 mmHg (75-108) Arterial Blood HCO3 17 mmol/L (21-28) Arterial Blood Base Excess -17 mmol/L (-3-3) Oxyhemoglobin 78.0 % Methemoglobin 0.5 % (0.0-1.9) Carbon Monoxide, Quantitative 0.2 % (0.0-1.9) FiO2 100 Test 10/26/19 12:33 10/26/19 17:15 10/26/19 20:25 10/27/19 00:15 Bedside Venous pH 6.93 (7.32-7.42) Bedside Venous pCO2 105 mmHg (41-51) Bedside Venous pO2 52 mmHg (20-40) Venous Blood HCO3 22 mmol/L (24-28) POC Venous O2 Saturation (Cristian) 60 % Bedside FiO2 100.0 O2 Saturation 100 % (92-99) Arterial Blood pH 7.36 (7.35-7.45) Arterial Blood pCO2 at Patient Temp 30 mmHg (35-46) Arterial Blood pO2 at Patient Temp 231 mmHg (75-108) Arterial Blood HCO3 17 mmol/L (21-28) Arterial Blood Base Excess -8 mmol/L (-3-3) FiO2 100 Lactic Acid Level 2.9 mmol/L (0.4-2.0) Troponin I Quantitative 0.201 ng/mL (0.000-0.055) Thyroid Stimulating Hormone (TSH) 0.813 uIU/mL (0.358-3.74) Test 10/27/19 00:16 10/27/19 06:00 Glucose (Fingerstick) 184 mg/dL (70-99) White Blood Count 15.8 x10^3/uL (4.0-11.0) Red Blood Count 4.17 x10^6/uL (3.50-5.40) Hemoglobin 11.6 g/dL (12.0-15.5) Hematocrit 35.4 % (36.0-47.0) Mean Corpuscular Volume 85 fL (79-100) Mean Corpuscular Hemoglobin 28 pg (25-35) Mean Corpuscular Hemoglobin Concent 33 g/dL (31-37) Red Cell Distribution Width 13.9 % (11.5-14.5) Platelet Count 124 x10^3/uL (140-400) Neutrophils (%) (Auto) 90 % (31-73) Lymphocytes (%) (Auto) 6 % (24-48) Monocytes (%) (Auto) 3 % (0-9) Eosinophils (%) (Auto) 0 % (0-3) Basophils (%) (Auto) 0 % (0-3) Neutrophils # (Auto) 14.3 x10^3/uL (1.8-7.7) Lymphocytes # (Auto) 1.0 x10^3/uL (1.0-4.8) Monocytes # (Auto) 0.5 x10^3/uL (0.0-1.1) Eosinophils # (Auto) 0.0 x10^3/uL (0.0-0.7) Basophils # (Auto) 0.0 x10^3/uL (0.0-0.2) Prothrombin Time 16.5 SEC (11.7-14.0) Prothromb Time International Ratio 1.4 (0.8-1.1) Activated Partial Thromboplast Time 38 SEC (24-38) Sodium Level 140 mmol/L (136-145) Potassium Level 3.4 mmol/L (3.5-5.1) Chloride Level 104 mmol/L (98-107) Carbon Dioxide Level 25 mmol/L (21-32) Anion Gap 11 (6-14) Blood Urea Nitrogen 20 mg/dL (7-20) Creatinine 1.8 mg/dL (0.6-1.0) Estimated GFR (Cockcroft-Gault) 35.0 BUN/Creatinine Ratio 11 (6-20) Glucose Level 173 mg/dL (70-99) Calcium Level 8.4 mg/dL (8.5-10.1) Total Bilirubin 1.6 mg/dL (0.2-1.0) Aspartate Amino Transf (AST/SGOT) 27 U/L (15-37) Alanine Aminotransferase (ALT/SGPT) 20 U/L (14-59) Alkaline Phosphatase 74 U/L (46-116) Total Protein 6.6 g/dL (6.4-8.2) Albumin 2.9 g/dL (3.4-5.0) Albumin/Globulin Ratio 0.8 (1.0-1.7) Comment Review of Relevant I have reviewed the following items marcelina (where applicable) has been applied. Medications: Current Medications Medications (Trade) Dose Ordered Sig/Marilee Route PRN Reason Start Time Stop Time Status Last Admin Dose Admin Etomidate (Amidate) 20 mg 1X ONCE IV 10/26/19 12:30 10/26/19 12:31 DC 10/26/19 12:05 Rocuronium Morton (Zemuron) 100 mg 1X ONCE IV 10/26/19 12:30 10/26/19 12:31 DC 10/26/19 12:05 Nitroglycerin/ Dextrose 250 ml @ 0 mls/hr 1X ONCE IV 10/26/19 12:30 10/26/19 12:31 DC 10/26/19 12:26 Fentanyl Citrate (Fentanyl 2ml Vial) 50 mcg 1X ONCE IVP 10/26/19 12:30 10/26/19 12:31 DC 10/26/19 12:18 Furosemide (Lasix) 40 mg 1X ONCE IVP 10/26/19 12:45 10/26/19 12:46 DC 10/26/19 13:03 Propofol 50 ml @ 0 mls/hr 1X ONCE IV 10/26/19 13:15 10/26/19 13:16 DC 10/26/19 13:07 Iohexol (Omnipaque 350 Mg/ml) 90 ml 1X ONCE IV 10/26/19 13:30 10/26/19 13:31 DC 10/26/19 13:30 Vancomycin HCl 2 gm/Sodium Chloride 500 ml @ 250 mls/hr 1X ONCE IV 10/26/19 14:45 10/26/19 16:44 DC 10/26/19 15:29 Cefepime HCl (Maxipime) 1 gm 1X ONCE IVP 10/26/19 14:45 10/26/19 14:46 DC 10/26/19 15:40 Norepinephrine Bitartrate 8 mg/ Dextrose 258 ml @ 16.238 mls/ hr 1X ONCE IV 10/26/19 14:45 10/27/19 06:38 DC 10/26/19 15:33 Atorvastatin Calcium (Lipitor) 80 mg QHS PO 10/26/19 21:00 10/26/19 21:31 Famotidine (Pepcid Vial) 20 mg BID IVP 10/26/19 21:00 10/26/19 21:30 Heparin Sodium (Porcine) (Heparin Sodium) 5,000 unit Q12HR SQ 10/26/19 15:00 10/26/19 21:54 DC 10/26/19 21:33 Methylprednisolone Sodium Succinate (SOLU-Medrol 125MG VIAL) 60 mg Q8HRS IV 10/26/19 15:15 10/27/19 06:07 Furosemide (Lasix) 40 mg 1X ONCE IVP 10/26/19 15:00 10/26/19 15:09 DC 10/26/19 15:35 Fentanyl Citrate 30 ml @ 0 mls/hr CONT PRN IV SEE PROTOCOL 10/26/19 15:15 10/27/19 06:07 Midazolam HCl 100 ml @ 0 mls/hr CONT PRN IV SEE PROTOCOL 10/26/19 15:15 10/27/19 07:21 Sodium Bicarbonate (Sodium Bicarb Adult 8.4% Syr) 50 meq 1X ONCE IV 10/26/19 17:30 10/26/19 17:31 DC 10/26/19 17:37 Levofloxacin/ Dextrose 150 ml @ 100 mls/hr Q24H IV 10/26/19 20:00 10/26/19 20:32 Heparin Sodium (Porcine) (Heparin Sodium) 5,000 unit Q8HRS SQ 10/26/19 22:00 10/27/19 06:08 Justicifation of Admission Dx: Justifications for Admission: Justification of Admission Dx: Yes CHF: Cardiac Arrhythmias Respiratory Failure: Mechanical Ventilation Aspiration Pneumonia: Hemodynamic Instability Sepsis: Altered Mental Status Altered Mental Status: Altered Mental Status SEGUNDO HERNANDEZ MD Oct 27, 2019 08:47
[2019-10-27] MEDS ORDERED: ELECTROLYTE (ICU) PROTOCOL. MC SCH (09:00)
[2019-10-27] MEDS ORDERED: ATROPINE 0.5 MG/5 ML DISP.SYRINGE. IV PRN (09:00)
[2019-10-27] MEDS ORDERED: FAMOTIDINE 20 MG/2 ML VIAL IVP SCH (09:00)
[2019-10-27] MEDS ORDERED: ALBUMIN HUMAN 5% 250 ML IV ONE (09:00)
[2019-10-27] MEDS ORDERED: IV NORMAL SALINE 500ML BAG 500 ML IV PRN (09:00)
[2019-10-27] MEDS: SACUBITRIL/VALSARTAN 49/51MG TABLET. PO SCH (09:00)
[2019-10-27] MEDS: ELECTROLYTE (ICU) PROTOCOL. MC SCH (09:00)
[2019-10-27] MEDS ORDERED: SPIRONOLACTONE 25 MG TABLET PO SCH (09:00)
[2019-10-27] MEDS ORDERED: ASPIRIN ENTERIC COATED 81 MG TABLET.DR. PO SCH (09:00)
[2019-10-27 09:09] LABS: FIO2 ABG 40% VENT
[2019-10-27] MEDS: FAMOTIDINE 20 MG/2 ML VIAL IVP SCH ×2 (09:19→21:58)
[2019-10-27] MEDS: DOCUSATE SODIUM 100 MG CAPSULE. PO SCH ×2 (09:22→21:00)
[2019-10-27] MEDS ORDERED: ASPIRIN CHEWABLE 81 MG TABLET. PO ONE (09:30)
[2019-10-27] MEDS ORDERED: POTASSIUM CHLORIDE 20MEQ 100 ML IV ONE (10:00)
--- NOTE | 2019-10-27 10:24 | NUR ---
SS following for discharge planning. SS reviewed pt chart and discussed with pt RN. Pt is from home with family and is currently on the vent. Possible extubation today. Pt on IV Levaquin and Dobutamine drip to be started today. COVID19 pending. SS will continue to follow for discharge planning.
--- NOTE | 2019-10-27 10:42 | PDOC ---
PULMONARY PROGRESS NOTES DATE: 10/27/19 TIME: 10:41 Subjective remains on AC mode off sedation off levo starting to respond Vitals Vital Signs Date Time Temp Pulse Resp B/P (MAP) Pulse Ox O2 Delivery O2 Flow Rate FiO2 10/27/19 10:00 94 14 98/52 (67) 100 Ventilator 10/27/19 08:00 98.7 98.7 Comments visual exam done due to COVID suspicion no soa no paradoxical breathing leg edema General: Alert, No acute distress Labs Laboratory Tests Test 10/26/19 11:52 10/26/19 11:57 10/26/19 11:58 10/26/19 12:25 Ferritin 182 ng/mL (8-252) White Blood Count 10.4 x10^3/uL (4.0-11.0) Red Blood Count 5.59 x10^6/uL (3.50-5.40) Hemoglobin 15.7 g/dL (12.0-15.5) Hematocrit 49.1 % (36.0-47.0) Mean Corpuscular Volume 88 fL (79-100) Mean Corpuscular Hemoglobin 28 pg (25-35) Mean Corpuscular Hemoglobin Concent 32 g/dL (31-37) Red Cell Distribution Width 14.7 % (11.5-14.5) Platelet Count 198 x10^3/uL (140-400) Neutrophils (%) (Auto) 49 % (31-73) Lymphocytes (%) (Auto) 42 % (24-48) Monocytes (%) (Auto) 8 % (0-9) Eosinophils (%) (Auto) 1 % (0-3) Basophils (%) (Auto) 1 % (0-3) Neutrophils # (Auto) 5.1 x10^3/uL (1.8-7.7) Lymphocytes # (Auto) 4.3 x10^3/uL (1.0-4.8) Monocytes # (Auto) 0.8 x10^3/uL (0.0-1.1) Eosinophils # (Auto) 0.1 x10^3/uL (0.0-0.7) Basophils # (Auto) 0.1 x10^3/uL (0.0-0.2) Sodium Level 140 mmol/L (136-145) Potassium Level 4.3 mmol/L (3.5-5.1) Chloride Level 102 mmol/L (98-107) Carbon Dioxide Level 24 mmol/L (21-32) Anion Gap 14 (6-14) Blood Urea Nitrogen 11 mg/dL (7-20) Creatinine 1.2 mg/dL (0.6-1.0) Estimated GFR (Cockcroft-Gault) 55.8 BUN/Creatinine Ratio 9 (6-20) Glucose Level 231 mg/dL (70-99) Calcium Level 9.4 mg/dL (8.5-10.1) Total Bilirubin 0.8 mg/dL (0.2-1.0) Aspartate Amino Transf (AST/SGOT) 24 U/L (15-37) Alanine Aminotransferase (ALT/SGPT) 23 U/L (14-59) Alkaline Phosphatase 138 U/L (46-116) Troponin I Quantitative < 0.017 ng/mL (0.000-0.055) UO-Sng-X-Type Natriuretic Peptide 311 pg/mL (0-124) Total Protein 9.5 g/dL (6.4-8.2) Albumin 4.3 g/dL (3.4-5.0) Albumin/Globulin Ratio 0.8 (1.0-1.7) Lactic Acid Level 5.7 mmol/L (0.4-2.0) O2 Saturation 79 % (92-99) Arterial Blood pH 6.94 (7.35-7.45) Arterial Blood pCO2 at Patient Temp 81 mmHg (35-46) Arterial Blood pO2 at Patient Temp 66 mmHg (75-108) Arterial Blood HCO3 17 mmol/L (21-28) Arterial Blood Base Excess -17 mmol/L (-3-3) Oxyhemoglobin 78.0 % Methemoglobin 0.5 % (0.0-1.9) Carbon Monoxide, Quantitative 0.2 % (0.0-1.9) FiO2 100 Test 10/26/19 12:33 10/26/19 17:15 10/26/19 20:25 10/27/19 00:15 Bedside Venous pH 6.93 (7.32-7.42) Bedside Venous pCO2 105 mmHg (41-51) Bedside Venous pO2 52 mmHg (20-40) Venous Blood HCO3 22 mmol/L (24-28) POC Venous O2 Saturation (Cristian) 60 % Bedside FiO2 100.0 O2 Saturation 100 % (92-99) Arterial Blood pH 7.36 (7.35-7.45) Arterial Blood pCO2 at Patient Temp 30 mmHg (35-46) Arterial Blood pO2 at Patient Temp 231 mmHg (75-108) Arterial Blood HCO3 17 mmol/L (21-28) Arterial Blood Base Excess -8 mmol/L (-3-3) FiO2 100 Lactic Acid Level 2.9 mmol/L (0.4-2.0) Troponin I Quantitative 0.201 ng/mL (0.000-0.055) Thyroid Stimulating Hormone (TSH) 0.813 uIU/mL (0.358-3.74) Test 10/27/19 00:16 10/27/19 06:00 10/27/19 08:45 Glucose (Fingerstick) 184 mg/dL (70-99) White Blood Count 15.8 x10^3/uL (4.0-11.0) Red Blood Count 4.17 x10^6/uL (3.50-5.40) Hemoglobin 11.6 g/dL (12.0-15.5) Hematocrit 35.4 % (36.0-47.0) Mean Corpuscular Volume 85 fL (79-100) Mean Corpuscular Hemoglobin 28 pg (25-35) Mean Corpuscular Hemoglobin Concent 33 g/dL (31-37) Red Cell Distribution Width 13.9 % (11.5-14.5) Platelet Count 124 x10^3/uL (140-400) Neutrophils (%) (Auto) 90 % (31-73) Lymphocytes (%) (Auto) 6 % (24-48) Monocytes (%) (Auto) 3 % (0-9) Eosinophils (%) (Auto) 0 % (0-3) Basophils (%) (Auto) 0 % (0-3) Neutrophils # (Auto) 14.3 x10^3/uL (1.8-7.7) Lymphocytes # (Auto) 1.0 x10^3/uL (1.0-4.8) Monocytes # (Auto) 0.5 x10^3/uL (0.0-1.1) Eosinophils # (Auto) 0.0 x10^3/uL (0.0-0.7) Basophils # (Auto) 0.0 x10^3/uL (0.0-0.2) Prothrombin Time 16.5 SEC (11.7-14.0) Prothromb Time International Ratio 1.4 (0.8-1.1) Activated Partial Thromboplast Time 38 SEC (24-38) Sodium Level 140 mmol/L (136-145) Potassium Level 3.4 mmol/L (3.5-5.1) Chloride Level 104 mmol/L (98-107) Carbon Dioxide Level 25 mmol/L (21-32) Anion Gap 11 (6-14) Blood Urea Nitrogen 20 mg/dL (7-20) Creatinine 1.8 mg/dL (0.6-1.0) Estimated GFR (Cockcroft-Gault) 35.0 BUN/Creatinine Ratio 11 (6-20) Glucose Level 173 mg/dL (70-99) Calcium Level 8.4 mg/dL (8.5-10.1) Total Bilirubin 1.6 mg/dL (0.2-1.0) Aspartate Amino Transf (AST/SGOT) 27 U/L (15-37) Alanine Aminotransferase (ALT/SGPT) 20 U/L (14-59) Alkaline Phosphatase 74 U/L (46-116) Total Protein 6.6 g/dL (6.4-8.2) Albumin 2.9 g/dL (3.4-5.0) Albumin/Globulin Ratio 0.8 (1.0-1.7) O2 Saturation 99 % (92-99) Arterial Blood pH 7.54 (7.35-7.45) Arterial Blood pCO2 at Patient Temp 23 mmHg (35-46) Arterial Blood pO2 at Patient Temp 165 mmHg (75-108) Arterial Blood HCO3 19 mmol/L (21-28) Arterial Blood Base Excess -2 mmol/L (-3-3) FiO2 40% vent Laboratory Tests Test 10/26/19 11:52 10/26/19 11:57 10/26/19 11:58 10/26/19 12:25 Ferritin 182 ng/mL (8-252) White Blood Count 10.4 x10^3/uL (4.0-11.0) Red Blood Count 5.59 x10^6/uL (3.50-5.40) Hemoglobin 15.7 g/dL (12.0-15.5) Hematocrit 49.1 % (36.0-47.0) Mean Corpuscular Volume 88 fL (79-100) Mean Corpuscular Hemoglobin 28 pg (25-35) Mean Corpuscular Hemoglobin Concent 32 g/dL (31-37) Red Cell Distribution Width 14.7 % (11.5-14.5) Platelet Count 198 x10^3/uL (140-400) Neutrophils (%) (Auto) 49 % (31-73) Lymphocytes (%) (Auto) 42 % (24-48) Monocytes (%) (Auto) 8 % (0-9) Eosinophils (%) (Auto) 1 % (0-3) Basophils (%) (Auto) 1 % (0-3) Neutrophils # (Auto) 5.1 x10^3/uL (1.8-7.7) Lymphocytes # (Auto) 4.3 x10^3/uL (1.0-4.8) Monocytes # (Auto) 0.8 x10^3/uL (0.0-1.1) Eosinophils # (Auto) 0.1 x10^3/uL (0.0-0.7) Basophils # (Auto) 0.1 x10^3/uL (0.0-0.2) Sodium Level 140 mmol/L (136-145) Potassium Level 4.3 mmol/L (3.5-5.1) Chloride Level 102 mmol/L (98-107) Carbon Dioxide Level 24 mmol/L (21-32) Anion Gap 14 (6-14) Blood Urea Nitrogen 11 mg/dL (7-20) Creatinine 1.2 mg/dL (0.6-1.0) Estimated GFR (Cockcroft-Gault) 55.8 BUN/Creatinine Ratio 9 (6-20) Glucose Level 231 mg/dL (70-99) Calcium Level 9.4 mg/dL (8.5-10.1) Total Bilirubin 0.8 mg/dL (0.2-1.0) Aspartate Amino Transf (AST/SGOT) 24 U/L (15-37) Alanine Aminotransferase (ALT/SGPT) 23 U/L (14-59) Alkaline Phosphatase 138 U/L (46-116) Troponin I Quantitative < 0.017 ng/mL (0.000-0.055) ER-Yir-I-Type Natriuretic Peptide 311 pg/mL (0-124) Total Protein 9.5 g/dL (6.4-8.2) Albumin 4.3 g/dL (3.4-5.0) Albumin/Globulin Ratio 0.8 (1.0-1.7) Lactic Acid Level 5.7 mmol/L (0.4-2.0) O2 Saturation 79 % (92-99) Arterial Blood pH 6.94 (7.35-7.45) Arterial Blood pCO2 at Patient Temp 81 mmHg (35-46) Arterial Blood pO2 at Patient Temp 66 mmHg (75-108) Arterial Blood HCO3 17 mmol/L (21-28) Arterial Blood Base Excess -17 mmol/L (-3-3) Oxyhemoglobin 78.0 % Methemoglobin 0.5 % (0.0-1.9) Carbon Monoxide, Quantitative 0.2 % (0.0-1.9) FiO2 100 Test 10/26/19 12:33 10/26/19 17:15 10/26/19 20:25 10/27/19 00:15 Bedside Venous pH 6.93 (7.32-7.42) Bedside Venous pCO2 105 mmHg (41-51) Bedside Venous pO2 52 mmHg (20-40) Venous Blood HCO3 22 mmol/L (24-28) POC Venous O2 Saturation (Cristian) 60 % Bedside FiO2 100.0 O2 Saturation 100 % (92-99) Arterial Blood pH 7.36 (7.35-7.45) Arterial Blood pCO2 at Patient Temp 30 mmHg (35-46) Arterial Blood pO2 at Patient Temp 231 mmHg (75-108) Arterial Blood HCO3 17 mmol/L (21-28) Arterial Blood Base Excess -8 mmol/L (-3-3) FiO2 100 Lactic Acid Level 2.9 mmol/L (0.4-2.0) Troponin I Quantitative 0.201 ng/mL (0.000-0.055) Thyroid Stimulating Hormone (TSH) 0.813 uIU/mL (0.358-3.74) Test 10/27/19 00:16 10/27/19 06:00 10/27/19 08:45 Glucose (Fingerstick) 184 mg/dL (70-99) White Blood Count 15.8 x10^3/uL (4.0-11.0) Red Blood Count 4.17 x10^6/uL (3.50-5.40) Hemoglobin 11.6 g/dL (12.0-15.5) Hematocrit 35.4 % (36.0-47.0) Mean Corpuscular Volume 85 fL (79-100) Mean Corpuscular Hemoglobin 28 pg (25-35) Mean Corpuscular Hemoglobin Concent 33 g/dL (31-37) Red Cell Distribution Width 13.9 % (11.5-14.5) Platelet Count 124 x10^3/uL (140-400) Neutrophils (%) (Auto) 90 % (31-73) Lymphocytes (%) (Auto) 6 % (24-48) Monocytes (%) (Auto) 3 % (0-9) Eosinophils (%) (Auto) 0 % (0-3) Basophils (%) (Auto) 0 % (0-3) Neutrophils # (Auto) 14.3 x10^3/uL (1.8-7.7) Lymphocytes # (Auto) 1.0 x10^3/uL (1.0-4.8) Monocytes # (Auto) 0.5 x10^3/uL (0.0-1.1) Eosinophils # (Auto) 0.0 x10^3/uL (0.0-0.7) Basophils # (Auto) 0.0 x10^3/uL (0.0-0.2) Prothrombin Time 16.5 SEC (11.7-14.0) Prothromb Time International Ratio 1.4 (0.8-1.1) Activated Partial Thromboplast Time 38 SEC (24-38) Sodium Level 140 mmol/L (136-145) Potassium Level 3.4 mmol/L (3.5-5.1) Chloride Level 104 mmol/L (98-107) Carbon Dioxide Level 25 mmol/L (21-32) Anion Gap 11 (6-14) Blood Urea Nitrogen 20 mg/dL (7-20) Creatinine 1.8 mg/dL (0.6-1.0) Estimated GFR (Cockcroft-Gault) 35.0 BUN/Creatinine Ratio 11 (6-20) Glucose Level 173 mg/dL (70-99) Calcium Level 8.4 mg/dL (8.5-10.1) Total Bilirubin 1.6 mg/dL (0.2-1.0) Aspartate Amino Transf (AST/SGOT) 27 U/L (15-37) Alanine Aminotransferase (ALT/SGPT) 20 U/L (14-59) Alkaline Phosphatase 74 U/L (46-116) Total Protein 6.6 g/dL (6.4-8.2) Albumin 2.9 g/dL (3.4-5.0) Albumin/Globulin Ratio 0.8 (1.0-1.7) O2 Saturation 99 % (92-99) Arterial Blood pH 7.54 (7.35-7.45) Arterial Blood pCO2 at Patient Temp 23 mmHg (35-46) Arterial Blood pO2 at Patient Temp 165 mmHg (75-108) Arterial Blood HCO3 19 mmol/L (21-28) Arterial Blood Base Excess -2 mmol/L (-3-3) FiO2 40% vent Medications Active Scripts Medications Dose Route/Sig Max Daily Dose Days Date Category Entresto 97 mg-103 mg Tablet (Sacubitril/Valsartan) 1 Each Tablet 1 Each PO BID 03/09/19 Reported Corlanor (Ivabradine HCl) 7.5 Mg Tablet 1 Tab PO BID 30 03/09/19 Reported Klor-Con 10 (Potassium Chloride) 10 Meq Tablet.er 1 Tab PO DAILY 30 03/09/19 Reported Carvedilol 25 Mg Tablet 25 Mg PO BIDWMEALS 03/09/19 Reported Bumetanide 1 Mg Tablet 1 Tab PO DAILY 03/09/19 Reported Atorvastatin Calcium 80 Mg Tablet 80 Mg PO DAILY 03/09/19 Reported Spironolactone 25 Mg Tablet 1 Tab PO DAILY 09/01/14 Reported Aspir 81 (Aspirin) 81 Mg Tablet. 1 Tab PO DAILY 09/01/14 Reported Comments CXR 10/27/2019 much resolved CHF Impression . IMPRESSION: 1. Acute hypoxic and hypercapnic respiratory failure secondary to cardiac arrest and likely cardiogenic shock.off pressor 2. Diffuse lung infiltrates. Combination of congestive heart failure and aspiration pneumonia. CT chest shows consolidation in the right upper lobe and lower lobes, which may be related to aspiration of secretions. much improved 3. Brief CPR with one round of ACLS protocol. 4. History of known cardiomyopathy with an EF of 30%. 5. No significant tobacco history. 6. Lactic acidosis secondary to hypotension and diminished perfusion. 7. SYED Plan . RECOMMENDATIONS: 1. AC mode. off sedation. responding. CPAP trial later 2. cxr much better. Now reduce urine output. try albumin/ dobutamine 3. off Levophed. 4. Follow cardiology recommendations. 5. Suspicion for COVID is less. We will await for the results. 6. Follow cardiology recommendations. 7. Obtain echocardiogram. 8. off sedation. 9. Discussed with RN, discussed with RT. This patient was seen during the time of COVID-19 pandemic. Critical care time 30 minutes including review of the chart, labs, imaging studies and decision making. AMINA ROGERS MD Oct 27, 2019 10:42
[2019-10-27 10:48] LABS: % BANDS 19 % (0-9); % LYMPHS 7 % (24-48); % MONOS 2 % (0-10); % SEGS 72 % (35-66)
[2019-10-27 10:49] LABS: PLT ESTIMATE DECREASED (ADEQUATE)
--- NOTE | 2019-10-27 10:58 | PDOC2 ---
JES REYNA JOB ESTIMATOR 10/27/19 1058: CARDIAC CONSULT DATE OF CONSULT Date of Consult DATE: 10/27/19 TIME: 0910 REASON FOR CONSULT Reason for Consult: CHF, Cardiomyopathy REFERRING PHYSICIAN Referring Physician: Fullbright SOURCE Source: Chart review HISTORY OF PRESENT ILLNESS HISTORY OF PRESENT ILLNESS This is a 58 yo female admitted for complains of shortness of breath, EMS was called and was noted to be severely hypoxic.Details unclear leading up to this hospitalization. No family available for info. En route she was noted progressing to somnolent mentation and was later intubated. No notation of any c hest pain or fever. She has BRIAN and has CPAP at home. She was recently seen by cardiology with continued HF regimen optimization per chart review. PAST MEDICAL HISTORY Past Medical History Cardiovascular: CAD (nonobstructive ), CHF, HTN, Hyperlipidemia, Pulmonary hypertension, Cardiomyopathy, PEA arrest CENTRAL NERVOUS SYSTEM: Other (brain tumor ) Heme/Onc: Other (RUE DVT) Endocrine: Diabetes, endometriosis? PAST SURGICAL HISTORY Past Surgical History Pacemaker (BiV AUTO SERVICE INSTRUCTOR-d) medtronic 2015, Tubal Ligation, LHC, D & C FAMILY HISTORY Family History: Family History Unknown SOCIAL HISTORY Smoke: No ALCOHOL: none Drugs: None Lives: with Family CURRENT MEDICATIONS CURRENT MEDICATIONS Current Medications Medications (Trade) Dose Ordered Sig/Marilee Route PRN Reason Start Time Stop Time Status Last Admin Dose Admin Etomidate (Amidate) 20 mg 1X ONCE IV 10/26/19 12:30 10/26/19 12:31 DC 10/26/19 12:05 Rocuronium [place] (Zemuron) 100 mg 1X ONCE IV 10/26/19 12:30 10/26/19 12:31 DC 10/26/19 12:05 Nitroglycerin/ Dextrose 250 ml @ 0 mls/hr 1X ONCE IV 10/26/19 12:30 10/26/19 12:31 DC 10/26/19 12:26 Fentanyl Citrate (Fentanyl 2ml Vial) 50 mcg 1X ONCE IVP 10/26/19 12:30 10/26/19 12:31 DC 10/26/19 12:18 Furosemide (Lasix) 40 mg 1X ONCE IVP 10/26/19 12:45 10/26/19 12:46 DC 10/26/19 13:03 Propofol 50 ml @ 0 mls/hr 1X ONCE IV 10/26/19 13:15 8/3/20 13:16 DC 10/26/19 13:07 Iohexol (Omnipaque 350 Mg/ml) 90 ml 1X ONCE IV 10/26/19 13:30 10/26/19 13:31 DC 10/26/19 13:30 Vancomycin HCl 2 gm/Sodium Chloride 500 ml @ 250 mls/hr 1X ONCE IV 10/26/19 14:45 10/26/19 16:44 DC 10/26/19 15:29 Cefepime HCl (Maxipime) 1 gm 1X ONCE IVP 10/26/19 14:45 10/26/19 14:46 DC 10/26/19 15:40 Norepinephrine Bitartrate 8 mg/ Dextrose 258 ml @ 16.238 mls/ hr 1X ONCE IV 10/26/19 14:45 10/27/19 06:38 DC 10/26/19 15:33 Spironolactone (Aldactone) 25 mg DAILY PO 10/27/19 09:00 10/27/19 09:22 Atorvastatin Calcium (Lipitor) 80 mg QHS PO 10/26/19 21:00 10/26/19 21:31 Famotidine (Pepcid Vial) 20 mg BID IVP 10/26/19 21:00 10/27/19 09:19 Info (Icu Electrolyte Protocol) 1 ea DAILY 10/27/19 09:00 10/27/19 09:00 Heparin Sodium (Porcine) (Heparin Sodium) 5,000 unit Q12HR SQ 10/26/19 15:00 10/26/19 21:54 DC 10/26/19 21:33 Docusate Sodium (Colace) 100 mg BID PO 10/26/19 21:00 10/27/19 09:22 Methylprednisolone Sodium Succinate (SOLU-Medrol 125MG VIAL) 60 mg Q8HRS IV 10/26/19 15:15 10/27/19 06:07 Furosemide (Lasix) 40 mg 1X ONCE IVP 10/26/19 15:00 10/26/19 15:09 DC 10/26/19 15:35 Fentanyl Citrate 30 ml @ 0 mls/hr CONT PRN IV SEE PROTOCOL 10/26/19 15:15 10/27/19 06:07 Midazolam HCl 100 ml @ 0 mls/hr CONT PRN IV SEE PROTOCOL 10/26/19 15:15 10/27/19 07:21 Sodium Bicarbonate (Sodium Bicarb Adult 8.4% Syr) 50 meq 1X ONCE IV 10/26/19 17:30 10/26/19 17:31 DC 10/26/19 17:37 Levofloxacin/ Dextrose 150 ml @ 100 mls/hr Q24H IV 10/26/19 20:00 10/26/19 20:32 Heparin Sodium (Porcine) (Heparin Sodium) 5,000 unit Q8HRS SQ 10/26/19 22:00 10/27/19 06:08 Albumin Human 250 ml @ 62.5 mls/hr 1X ONCE IV 10/27/19 09:00 10/27/19 12:59 10/27/19 09:23 Aspirin (Aspirin Chewable) 81 mg 1X ONCE PO 10/27/19 09:30 10/27/19 09:31 DC 10/27/19 09:30 ALLERGIES ALLERGIES: Coded Allergies: Anesthetics - Amide Type (Verified Allergy, Severe, Anaphylaxis, 07/01/17) Penicillins (Verified Allergy, Mild, Nausea, 07/01/17) ROS Review of System unreliable, pt is intubated and sedated PHYSICAL EXAM PHYSICAL EXAM discussed with RN General: Other (intubated) HEENT: Atraumatic Lungs: Other (vent) Heart: Other (AV paced) Abdomen: Other (obese) Extremities: Other (LE edema) Skin: No breakdown Neuro: Other (edated) MUSCULOSKELETAL: Osteoarthritic changes both hands VITALS/I&O VITALS/I&O: Vital Signs Date Time Temp Pulse Resp B/P (MAP) Pulse Ox O2 Delivery O2 Flow Rate FiO2 10/27/19 10:00 94 14 98/52 (67) 100 Ventilator 10/27/19 08:00 98.7 98.7 I & O 10/26/19 10/26/19 10/27/19 15:00 23:00 07:00 Intake Total 275.9 ml 122.4 ml Output Total 1750 ml 255 ml Balance -1474.1 ml -132.6 ml LABS Lab: Laboratory Tests Test 10/26/19 11:52 10/26/19 11:57 10/26/19 11:58 10/26/19 12:25 Ferritin 182 ng/mL (8-252) White Blood Count 10.4 x10^3/uL (4.0-11.0) Red Blood Count 5.59 x10^6/uL (3.50-5.40) H Hemoglobin 15.7 g/dL (12.0-15.5) H Hematocrit 49.1 % (36.0-47.0) H Mean Corpuscular Volume 88 fL (79-100) Mean Corpuscular Hemoglobin 28 pg (25-35) Mean Corpuscular Hemoglobin Concent 32 g/dL (31-37) Red Cell Distribution Width 14.7 % (11.5-14.5) H Platelet Count 198 x10^3/uL (140-400) Neutrophils (%) (Auto) 49 % (31-73) Lymphocytes (%) (Auto) 42 % (24-48) Monocytes (%) (Auto) 8 % (0-9) Eosinophils (%) (Auto) 1 % (0-3) Basophils (%) (Auto) 1 % (0-3) Neutrophils # (Auto) 5.1 x10^3/uL (1.8-7.7) Lymphocytes # (Auto) 4.3 x10^3/uL (1.0-4.8) Monocytes # (Auto) 0.8 x10^3/uL (0.0-1.1) Eosinophils # (Auto) 0.1 x10^3/uL (0.0-0.7) Basophils # (Auto) 0.1 x10^3/uL (0.0-0.2) Sodium Level 140 mmol/L (136-145) Potassium Level 4.3 mmol/L (3.5-5.1) Chloride Level 102 mmol/L (98-107) Carbon Dioxide Level 24 mmol/L (21-32) Anion Gap 14 (6-14) Blood Urea Nitrogen 11 mg/dL (7-20) Creatinine 1.2 mg/dL (0.6-1.0) H Estimated GFR (Cockcroft-Gault) 55.8 BUN/Creatinine Ratio 9 (6-20) Glucose Level 231 mg/dL (70-99) H Calcium Level 9.4 mg/dL (8.5-10.1) Total Bilirubin 0.8 mg/dL (0.2-1.0) Aspartate Amino Transferase (AST) 24 U/L (15-37) Alanine Aminotransferase (ALT) 23 U/L (14-59) Alkaline Phosphatase 138 U/L (46-116) H Troponin I Quantitative < 0.017 ng/mL (0.000-0.055) QJ-Dif-R-Type Natriuretic Peptide 311 pg/mL (0-124) H Total Protein 9.5 g/dL (6.4-8.2) H Albumin 4.3 g/dL (3.4-5.0) Albumin/Globulin Ratio 0.8 (1.0-1.7) L Lactic Acid Level 5.7 mmol/L (0.4-2.0) *H O2 Saturation 79 % (92-99) L Arterial Blood pH 6.94 (7.35-7.45) *L Arterial Blood pCO2 at Patient Temp 81 mmHg (35-46) *H Arterial Blood pO2 at Patient Temp 66 mmHg (75-108) L Arterial Blood HCO3 17 mmol/L (21-28) L Arterial Blood Base Excess -17 mmol/L (-3-3) L Oxyhemoglobin 78.0 % Methemoglobin 0.5 % (0.0-1.9) Carbon Monoxide, Quantitative 0.2 % (0.0-1.9) FiO2 100 Test 10/26/19 12:33 10/26/19 17:15 10/26/19 20:25 10/27/19 00:15 POC Venous pH 6.93 (7.32-7.42) L POC Venous pCO2 105 mmHg (41-51) H POC Venous pO2 52 mmHg (20-40) H Venous Blood HCO3 22 mmol/L (24-28) L POC Venous O2 Saturation (Cristian) 60 % POC FiO2 100.0 O2 Saturation 100 % (92-99) H Arterial Blood pH 7.36 (7.35-7.45) Arterial Blood pCO2 at Patient Temp 30 mmHg (35-46) L Arterial Blood pO2 at Patient Temp 231 mmHg (75-108) H Arterial Blood HCO3 17 mmol/L (21-28) L Arterial Blood Base Excess -8 mmol/L (-3-3) L FiO2 100 Lactic Acid Level 2.9 mmol/L (0.4-2.0) H Troponin I Quantitative 0.201 ng/mL (0.000-0.055) Thyroid Stimulating Hormone (TSH) 0.813 uIU/mL (0.358-3.74) Test 10/27/19 00:16 10/27/19 06:00 10/27/19 08:45 Glucose (Fingerstick) 184 mg/dL (70-99) H White Blood Count 15.8 x10^3/uL (4.0-11.0) H Red Blood Count 4.17 x10^6/uL (3.50-5.40) Hemoglobin 11.6 g/dL (12.0-15.5) L Hematocrit 35.4 % (36.0-47.0) L Mean Corpuscular Volume 85 fL (79-100) Mean Corpuscular Hemoglobin 28 pg (25-35) Mean Corpuscular Hemoglobin Concent 33 g/dL (31-37) Red Cell Distribution Width 13.9 % (11.5-14.5) Platelet Count 124 x10^3/uL (140-400) L Neutrophils (%) (Auto) 90 % (31-73) H Lymphocytes (%) (Auto) 6 % (24-48) L Monocytes (%) (Auto) 3 % (0-9) Eosinophils (%) (Auto) 0 % (0-3) Basophils (%) (Auto) 0 % (0-3) Neutrophils # (Auto) 14.3 x10^3/uL (1.8-7.7) H Lymphocytes # (Auto) 1.0 x10^3/uL (1.0-4.8) Monocytes # (Auto) 0.5 x10^3/uL (0.0-1.1) Eosinophils # (Auto) 0.0 x10^3/uL (0.0-0.7) Basophils # (Auto) 0.0 x10^3/uL (0.0-0.2) Platelet Estimate Pending Prothrombin Time 16.5 SEC (11.7-14.0) H Prothrombin Time INR 1.4 (0.8-1.1) H Activated Partial Thromboplast Time 38 SEC (24-38) Sodium Level 140 mmol/L (136-145) Potassium Level 3.4 mmol/L (3.5-5.1) L Chloride Level 104 mmol/L (98-107) Carbon Dioxide Level 25 mmol/L (21-32) Anion Gap 11 (6-14) Blood Urea Nitrogen 20 mg/dL (7-20) Creatinine 1.8 mg/dL (0.6-1.0) H Estimated GFR (Cockcroft-Gault) 35.0 BUN/Creatinine Ratio 11 (6-20) Glucose Level 173 mg/dL (70-99) H Calcium Level 8.4 mg/dL (8.5-10.1) L Total Bilirubin 1.6 mg/dL (0.2-1.0) H Aspartate Amino Transferase (AST) 27 U/L (15-37) Alanine Aminotransferase (ALT) 20 U/L (14-59) Alkaline Phosphatase 74 U/L (46-116) Total Protein 6.6 g/dL (6.4-8.2) Albumin 2.9 g/dL (3.4-5.0) L Albumin/Globulin Ratio 0.8 (1.0-1.7) L O2 Saturation 99 % (92-99) Arterial Blood pH 7.54 (7.35-7.45) H Arterial Blood pCO2 at Patient Temp 23 mmHg (35-46) L Arterial Blood pO2 at Patient Temp 165 mmHg (75-108) H Arterial Blood HCO3 19 mmol/L (21-28) L Arterial Blood Base Excess -2 mmol/L (-3-3) FiO2 40% vent Laboratory Tests 10/26/19 11:57 10/27/19 06:00 Laboratory Tests 10/26/19 11:57 10/27/19 06:00 EKG EKG Recent device check 10/22/2019 12:01:27 PM - MOUNA MCKEON] Please see scanned data sheets for further review. Scheduled [employer] transmission received for dual chamber AUTO SERVICE INSTRUCTOR-D. Device function appears appropriate. Presenting EGM shows -PLATE CORRECTOR 84 bpm. Battery longevity 3.9 yrs. Events noted since 10/13/2019: Atrial: none. Ventricular: 9 NSVT. Most recent on 10/12/2019 for 1 sec. Longest 9 sec. EGMs bebo w Atach, sudden onset and termination with 1:1 conduction. V-sensed: 160 episodes Most recent on 10/16/2019 for 7 sec. Longest 27 sec. Rates 143-167 Plots suggest sinus tach above max track rate. Pt is BiVP 98.5% of the time. PVC burden/amount: <0.1/hr Optivol is trending up, not at an index of 60 yet, similar fluctuations in recent trend none above an index of 60 which is not suggestive of significant fluid accumulation. ECHOCARDIOGRAM ECHOCARDIOGRAM <Conclusion> The left ventricular systolic function is moderately impaired. EF 30-35% There is moderate global hypokinesis There is a pacemaker lead in the right ventricle. DATE: 03/09/19 1454 STRESS TEST STRESS TEST SUMMARY/OPINION: This study is abnormal due to moderate to severely depressed left ventricular systolic function. The left ventricular ejection fraction 34%. There are no perfusion defects. This suggests a nonischemic cardiomyopathy. There are no high risk adverse prognostic indicators present. The pharmacologic stress electrocardiogram is nonischemic. This study is compared to prior [facility] study dated July 25, 2016. On the previous study the left ventricular ejection fraction was 31%. There were no perfusion defects present previously either. Comparing the 2 studies there is been a mild interval increase in left ventricular ejection fraction. 10/27/18 - Procedure: D-SPECT MULTI GATED THALLIUM REGADENOSON MPI STRESS TEST [facility] ASSESSMENT/PLAN ASSESSMENT/PLAN 1. Acute respiratory failure with acute CHF and cardiomyopathy and possible pneumonia. Pulmonary following 2. Acute on chronic diastolic/systolic CHF 3. NICM; LVEF 30-35% 4 CAD: known nonobstructive. Recent stress test without perfusion defect. 5. Hypertension; controlled 6. Hyperlipidemia; statin 7. Diabetes, II 8. SYED 9. BRIAN: uses CPAP at home. 10. Elevated troponin: 0.2. EKG paced rhythm without acute changes 11. Bi-V AUTO SERVICE INSTRUCTOR-D (Medtronic).in situ 12. Hx if inappropriate sinus tachycardia: presently 100-120, paced rhythm, on corlanor at home not in hospital formulary Recommendations 1. Presently intubated/vent. Continue pressor support. Agree with starting Inotrope 2. Continue to diurese. Replace K. Hold home coreg, entresto and aldactone 3. Awaiting covid PCR. Will interrogate device and obtain TTE if covid negative SARAH MARSHALL MD 10/28/19 1055: CARDIAC CONSULT ASSESSMENT/PLAN ASSESSMENT/PLAN Patient seen 10/27/19. Agree with DIGITAL MARKETING MANAGER's assessment and plan. Acute respiratory failure s/p intubation, continue treatment per pulmonary team. COVID test pending. Agree with diuresis with inotropic support for acute on chronic systolic heart failure. Patient needing pressor support sepsis/hypotension Slight troponin elevation probably demand ischemia. Nonobstructive CAD clinically stable. Thank you for your consultation JES REYNA APRN Oct 27, 2019 10:58 SARAH MARSHALL MD Oct 28, 2019 10:55
[2019-10-27] MEDS ORDERED: BUMETANIDE 1 MG/4 ML VIAL. IV SCH (14:00)
[2019-10-27 15:29] LABS: CHOLESTEROL/HDL RATIO 3.9
[2019-10-27] MEDS: DEXMEDETOMIDINE 400 MCG in IV NORMAL SALINE 100ML 96 ML IV PRN (15:37)
--- NOTE | 2019-10-27 16:19 | NUR ---
Sedation turned off at 0945 to put patient on spontaneous breathing trial. Patient's eyes were open and arms moving by 1045, however patient wasn't alert enough or following commands to trial. At 1245, patient was started on breathing trial of 10/5 and 40%. Patient's respiratory rate was 24-28, TV 250-325. After an hour on a trial, patient was still lethargic and not quite awake enough to extubate. Notified Dr. Bassett who wants to very minimally sedate overnight using precedex and start the CPAP trial again early tomorrow morning. Patient remained on a breathing trial until 1545.
--- NOTE | 2019-10-27 18:26 | NUR ---
Spoke with Dr. Solano regarding hypertension, no new orders given. Spoke with Dr. Bassett regarding negative covid status, do not need to re-swab patient. Will continue to monitor.
[2019-10-27] MEDS: DOCUSATE 100 MG/10 ML SOLUTION. NG SCH (21:58)
[2019-10-27] MEDS: ATORVASTATIN CALCIUM 40 MG TABLET. PO SCH (21:58)
[2019-10-28] VITALS (24 sets, daily range): BP systolic 105–172; BP diastolic 63–95
[2019-10-28] MEDS: DEXMEDETOMIDINE 400 MCG in IV NORMAL SALINE 100ML 96 ML IV PRN (01:05)
[2019-10-28] MEDS: hydrALAZINE 20 MG/ML VIAL. IVP PRN (04:45)
[2019-10-28] MEDS: methylPREDNISolone SOD SUCC PF 125 MG/2 ML VIAL. IV SCH ×3 (05:54→22:19)
[2019-10-28] MEDS: HEPARIN for SUB-Q USE 5,000 UNIT/ML VIAL. SQ SCH ×3 (05:56→22:20)
[2019-10-28 06:31] LABS: CALCIUM 8.3 mg/dL (8.5-10.1); CREATININE 1.7 mg/dL (0.6-1.0); GFR 37.4; POTASSIUM 3.8 mmol/L (3.5-5.1)
[2019-10-28] MEDS: POTASSIUM CHLORIDE 10 MEQ TABLET.ER. PO SCH (07:33)
[2019-10-28] MEDS ORDERED: POTASSIUM BICARB 20 MEQ EFFERVESCENT TABLET. PEG ONE (07:45)
[2019-10-28 07:58] LABS: BASE EXCESS ABG 1 mmol/L (-3-3); HCO3 ABG 25 mmol/L (21-28); PCO2 ABG 38 mmHg (35-46); PO2 ABG 108 mmHg (75-108); SAT O2 ABG 98 % (92-99)
--- NOTE | 2019-10-28 08:23 | NUR ---
called place to medtronic. pacemaker interrogated at bedside. informed of 28 min run of vtach 10/25. currently AV paced on monitor. will pass on to cardiology
[2019-10-28 08:33] LABS: FIO2 ABG 30/VENT
[2019-10-28] MEDS: ELECTROLYTE (ICU) PROTOCOL. MC SCH (09:00)
[2019-10-28] MEDS ORDERED: POTASSIUM CHLORIDE 10MEQ 100 ML IV SCH (09:30)
--- NOTE | 2019-10-28 09:31 | PDOC ---
[employer] PROGRESS NOTE Date of Service DOS: DATE: 10/28/19 TIME: 09:29 Chief Complaint Chief Complaint A/P: Right upper and bilateral lower lobe dense consolidations with bilateral ground glass opacities, concerning for pneumonia, edema or ARDS. Acute hypercapnic, hypoxic resp failure CARDIOMYOPATHY ON ECHO 2018, left ventricular systolic function is moderately impaired. EF 30-35% moderate global hypokinesis pacemaker lead in the right ventricle. 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 Chest x-ray revealed diffuse bilateral infiltrates consistent with CHF. No significant pleural effusion seen. Her ABGs initially showed a pH of 6.9, pCO2 of 81 and a pO2 of 66 with bicarbonate of 17 on 100% FiO2. The patient lost her pulse and had one round of CPR in ED, did have ROSC. She was emergently intubated and had right IJ CVC placed for pressor support. She had repeat ABGs which showed a pH of 7.36, pCO2 of 30 and a pO2 of 231 with a bicarbonate of 17. CTPA revealed no evidence of pulmonary embolism, but did show a consolidation in the right upper lobe and lower lobes and also some ground-glass opacities consistent with CHF. Noted initialy ypertensive with a systolic blood pressure in the 200s. She was started on nitro drip but quickly became hypotensive. Nitro was stopped and she was started on low-dose Levophed. 10/26: Seen on vent AC mode 18, tidal volume 500 and 100% FiO2 and 12 of PEEP. Off sedation awakens to painful stimuli. Received albumin for creatinine increased to 1.8 after contrast administration yesterday. Blood pressure requiring pressor support changed to dobutamine. Seen on vent AC mode tidal volume 500, 5 of PEEP, 40% FiO2. Creatinine 1.7. Awakens to painful stimuli. On patient AICD interrogation she was noted with 28 minutes of slow V. tach on 10/26/2019 that did not trigger shock due to not crossing the threshold. I discussed with cardiology to initiate amiodarone the rapy Vitals/I&O Vitals/I&O: Vital Signs Date Time Temp Pulse Resp B/P (MAP) Pulse Ox O2 Delivery O2 Flow Rate FiO2 10/28/19 08:03 99 Ventilator 10/28/19 07:00 104 12 105/75 (85) 10/28/19 04:00 98.4 98.4 I & O 10/27/19 10/27/19 10/28/19 15:00 23:00 07:00 Intake Total 180 ml 130.63 ml 90.4 ml Output Total 195 ml 335 ml 260 ml Balance -15 ml -204.37 ml -169.6 ml Physical Exam General: Other (intubated) Heart: Other (AV paced) Abdomen: Other (obese) Extremities: Other (LE edema) Skin: No breakdown Labs Labs: Laboratory Tests Test 10/27/19 12:09 10/28/19 05:50 10/28/19 07:45 Glucose (Fingerstick) 179 mg/dL (70-99) Sodium Level 141 mmol/L (136-145) Potassium Level 3.8 mmol/L (3.5-5.1) Chloride Level 105 mmol/L (98-107) Carbon Dioxide Level 26 mmol/L (21-32) Anion Gap 10 (6-14) Blood Urea Nitrogen 35 mg/dL (7-20) Creatinine 1.7 mg/dL (0.6-1.0) Estimated GFR (Cockcroft-Gault) 37.4 Glucose Level 203 mg/dL (70-99) Calcium Level 8.3 mg/dL (8.5-10.1) O2 Saturation 98 % (92-99) Arterial Blood pH 7.43 (7.35-7.45) Arterial Blood pCO2 at Patient Temp 38 mmHg (35-46) Arterial Blood pO2 at Patient Temp 108 mmHg (75-108) Arterial Blood HCO3 25 mmol/L (21-28) Arterial Blood Base Excess 1 mmol/L (-3-3) FiO2 30/vent Comment Review of Relevant I have reviewed the following items marcelina (where applicable) has been applied. Medications: Current Medications Medications (Trade) Dose Ordered Sig/Marilee Route PRN Reason Start Time Stop Time Status Last Admin Dose Admin Potassium Chloride/Water 100 ml @ 100 mls/hr 1X ONCE IV 10/27/19 10:00 10/27/19 10:59 DC 10/27/19 11:02 Aspirin (Aspirin Chewable) 81 mg 1X ONCE PO 10/27/19 09:30 10/27/19 09:31 DC 10/27/19 09:30 Bumetanide (Bumex) 1 mg [id number] IV 10/27/19 14:00 10/27/19 13:58 Docusate Sodium (Colace Solution) 100 mg BID NG 10/27/19 22:00 10/27/19 21:58 Hydralazine HCl (Apresoline Inj) 10 mg PRN Q4HRS PRN IVP ELEVATED BP, SEE COMMENTS 10/27/19 23:15 10/28/19 04:45 Justicifation of Admission Dx: Justifications for Admission: Justification of Admission Dx: Yes CHF: Cardiac Arrhythmias Respiratory Failure: Mechanical Ventilation Aspiration Pneumonia: Hemodynamic Instability Sepsis: Altered Mental Status Altered Mental Status: Altered Mental Status SEGUNDO HERNANDEZ MD Oct 28, 2019 09:31
[2019-10-28] MEDS ORDERED: AMIODARONE 450 MG in IV DEXTROSE 5% 250 ML IV PRN (09:45)
[2019-10-28] MEDS: CARVEDILOL 12.5 MG TABLET. PO SCH ×2 (09:51→17:00)
[2019-10-28] MEDS: ASPIRIN CHEWABLE 81 MG TABLET. PO SCH (09:51)
[2019-10-28] MEDS: FAMOTIDINE 20 MG/2 ML VIAL IVP SCH ×2 (09:52→20:34)
[2019-10-28] MEDS: DOCUSATE 100 MG/10 ML SOLUTION. NG SCH ×2 (09:52→20:34)
[2019-10-28] MEDS ORDERED: AMIODARONE 150 MG in IV DEXTROSE 5% 100ML 100 ML IV ONE (10:00)
--- NOTE | 2019-10-28 10:21 | PDOC ---
PULMONARY PROGRESS NOTES DATE: 10/28/19 TIME: 10:19 Subjective remains on AC mode off sedation off levo starting to respond Vitals Vital Signs Date Time Temp Pulse Resp B/P (MAP) Pulse Ox O2 Delivery O2 Flow Rate FiO2 10/28/19 09:51 80 156/76 10/28/19 08:03 99 Ventilator 10/28/19 07:00 12 10/28/19 04:00 98.4 98.4 General: Alert, No acute distress Lungs: Clear Cardiovascular: S1 Abdomen: Soft Neuro Exam: Alert Extremities: Other (1+edema) Labs Laboratory Tests Test 10/26/19 11:52 10/26/19 11:57 10/26/19 11:58 10/26/19 12:25 Ferritin 182 ng/mL (8-252) White Blood Count 10.4 x10^3/uL (4.0-11.0) Red Blood Count 5.59 x10^6/uL (3.50-5.40) Hemoglobin 15.7 g/dL (12.0-15.5) Hematocrit 49.1 % (36.0-47.0) Mean Corpuscular Volume 88 fL (79-100) Mean Corpuscular Hemoglobin 28 pg (25-35) Mean Corpuscular Hemoglobin Concent 32 g/dL (31-37) Red Cell Distribution Width 14.7 % (11.5-14.5) Platelet Count 198 x10^3/uL (140-400) Neutrophils (%) (Auto) 49 % (31-73) Lymphocytes (%) (Auto) 42 % (24-48) Monocytes (%) (Auto) 8 % (0-9) Eosinophils (%) (Auto) 1 % (0-3) Basophils (%) (Auto) 1 % (0-3) Neutrophils # (Auto) 5.1 x10^3/uL (1.8-7.7) Lymphocytes # (Auto) 4.3 x10^3/uL (1.0-4.8) Monocytes # (Auto) 0.8 x10^3/uL (0.0-1.1) Eosinophils # (Auto) 0.1 x10^3/uL (0.0-0.7) Basophils # (Auto) 0.1 x10^3/uL (0.0-0.2) Sodium Level 140 mmol/L (136-145) Potassium Level 4.3 mmol/L (3.5-5.1) Chloride Level 102 mmol/L (98-107) Carbon Dioxide Level 24 mmol/L (21-32) Anion Gap 14 (6-14) Blood Urea Nitrogen 11 mg/dL (7-20) Creatinine 1.2 mg/dL (0.6-1.0) Estimated GFR (Cockcroft-Gault) 55.8 BUN/Creatinine Ratio 9 (6-20) Glucose Level 231 mg/dL (70-99) Calcium Level 9.4 mg/dL (8.5-10.1) Total Bilirubin 0.8 mg/dL (0.2-1.0) Aspartate Amino Transf (AST/SGOT) 24 U/L (15-37) Alanine Aminotransferase (ALT/SGPT) 23 U/L (14-59) Alkaline Phosphatase 138 U/L (46-116) Troponin I Quantitative < 0.017 ng/mL (0.000-0.055) SQ-Utn-F-Type Natriuretic Peptide 311 pg/mL (0-124) Total Protein 9.5 g/dL (6.4-8.2) Albumin 4.3 g/dL (3.4-5.0) Albumin/Globulin Ratio 0.8 (1.0-1.7) Lactic Acid Level 5.7 mmol/L (0.4-2.0) O2 Saturation 79 % (92-99) Arterial Blood pH 6.94 (7.35-7.45) Arterial Blood pCO2 at Patient Temp 81 mmHg (35-46) Arterial Blood pO2 at Patient Temp 66 mmHg (75-108) Arterial Blood HCO3 17 mmol/L (21-28) Arterial Blood Base Excess -17 mmol/L (-3-3) Oxyhemoglobin 78.0 % Methemoglobin 0.5 % (0.0-1.9) Carbon Monoxide, Quantitative 0.2 % (0.0-1.9) FiO2 100 Test 10/26/19 12:33 10/26/19 12:34 10/26/19 17:15 10/26/19 20:25 Bedside Venous pH 6.93 (7.32-7.42) Bedside Venous pCO2 105 mmHg (41-51) Bedside Venous pO2 52 mmHg (20-40) Venous Blood HCO3 22 mmol/L (24-28) POC Venous O2 Saturation (Cristian) 60 % Bedside FiO2 100.0 Coronavirus (PCR) Not detected (Not Detected) O2 Saturation 100 % (92-99) Arterial Blood pH 7.36 (7.35-7.45) Arterial Blood pCO2 at Patient Temp 30 mmHg (35-46) Arterial Blood pO2 at Patient Temp 231 mmHg (75-108) Arterial Blood HCO3 17 mmol/L (21-28) Arterial Blood Base Excess -8 mmol/L (-3-3) FiO2 100 Lactic Acid Level 2.9 mmol/L (0.4-2.0) Test 10/27/19 00:15 10/27/19 00:16 10/27/19 06:00 10/27/19 08:45 Troponin I Quantitative 0.201 ng/mL (0.000-0.055) 0.089 ng/mL (0.000-0.055) Thyroid Stimulating Hormone (TSH) 0.813 uIU/mL (0.358-3.74) Glucose (Fingerstick) 184 mg/dL (70-99) White Blood Count 15.8 x10^3/uL (4.0-11.0) Red Blood Count 4.17 x10^6/uL (3.50-5.40) Hemoglobin 11.6 g/dL (12.0-15.5) Hematocrit 35.4 % (36.0-47.0) Mean Corpuscular Volume 85 fL (79-100) Mean Corpuscular Hemoglobin 28 pg (25-35) Mean Corpuscular Hemoglobin Concent 33 g/dL (31-37) Red Cell Distribution Width 13.9 % (11.5-14.5) Platelet Count 124 x10^3/uL (140-400) Neutrophils (%) (Auto) 90 % (31-73) Lymphocytes (%) (Auto) 6 % (24-48) Monocytes (%) (Auto) 3 % (0-9) Eosinophils (%) (Auto) 0 % (0-3) Basophils (%) (Auto) 0 % (0-3) Neutrophils # (Auto) 14.3 x10^3/uL (1.8-7.7) Lymphocytes # (Auto) 1.0 x10^3/uL (1.0-4.8) Monocytes # (Auto) 0.5 x10^3/uL (0.0-1.1) Eosinophils # (Auto) 0.0 x10^3/uL (0.0-0.7) Basophils # (Auto) 0.0 x10^3/uL (0.0-0.2) Segmented Neutrophils % 72 % (35-66) Band Neutrophils % 19 % (0-9) Lymphocytes % 7 % (24-48) Monocytes % 2 % (0-10) Platelet Estimate Decreased (ADEQUATE) Prothrombin Time 16.5 SEC (11.7-14.0) Prothromb Time International Ratio 1.4 (0.8-1.1) Activated Partial Thromboplast Time 38 SEC (24-38) Sodium Level 140 mmol/L (136-145) Potassium Level 3.4 mmol/L (3.5-5.1) Chloride Level 104 mmol/L (98-107) Carbon Dioxide Level 25 mmol/L (21-32) Anion Gap 11 (6-14) Blood Urea Nitrogen 20 mg/dL (7-20) Creatinine 1.8 mg/dL (0.6-1.0) Estimated GFR (Cockcroft-Gault) 35.0 BUN/Creatinine Ratio 11 (6-20) Glucose Level 173 mg/dL (70-99) Calcium Level 8.4 mg/dL (8.5-10.1) Total Bilirubin 1.6 mg/dL (0.2-1.0) Aspartate Amino Transf (AST/SGOT) 27 U/L (15-37) Alanine Aminotransferase (ALT/SGPT) 20 U/L (14-59) Alkaline Phosphatase 74 U/L (46-116) Total Protein 6.6 g/dL (6.4-8.2) Albumin 2.9 g/dL (3.4-5.0) Albumin/Globulin Ratio 0.8 (1.0-1.7) Triglycerides Level 56 mg/dL (0-150) Cholesterol Level 213 mg/dL (0-200) LDL Cholesterol, Calculated 148 mg/dL (0-100) VLDL Cholesterol, Calculated 11 mg/dL (0-40) Non-HDL Cholesterol Calculated 159 mg/dL (0-129) HDL Cholesterol 54 mg/dL (40-60) Cholesterol/HDL Ratio 3.9 O2 Saturation 99 % (92-99) Arterial Blood pH 7.54 (7.35-7.45) Arterial Blood pCO2 at Patient Temp 23 mmHg (35-46) Arterial Blood pO2 at Patient Temp 165 mmHg (75-108) Arterial Blood HCO3 19 mmol/L (21-28) Arterial Blood Base Excess -2 mmol/L (-3-3) FiO2 40% vent Test 10/27/19 12:09 10/28/19 05:50 10/28/19 07:45 Glucose (Fingerstick) 179 mg/dL (70-99) Sodium Level 141 mmol/L (136-145) Potassium Level 3.8 mmol/L (3.5-5.1) Chloride Level 105 mmol/L (98-107) Carbon Dioxide Level 26 mmol/L (21-32) Anion Gap 10 (6-14) Blood Urea Nitrogen 35 mg/dL (7-20) Creatinine 1.7 mg/dL (0.6-1.0) Estimated GFR (Cockcroft-Gault) 37.4 Glucose Level 203 mg/dL (70-99) Calcium Level 8.3 mg/dL (8.5-10.1) O2 Saturation 98 % (92-99) Arterial Blood pH 7.43 (7.35-7.45) Arterial Blood pCO2 at Patient Temp 38 mmHg (35-46) Arterial Blood pO2 at Patient Temp 108 mmHg (75-108) Arterial Blood HCO3 25 mmol/L (21-28) Arterial Blood Base Excess 1 mmol/L (-3-3) FiO2 30/vent Laboratory Tests Test 10/27/19 12:09 10/28/19 05:50 10/28/19 07:45 Glucose (Fingerstick) 179 mg/dL (70-99) Sodium Level 141 mmol/L (136-145) Potassium Level 3.8 mmol/L (3.5-5.1) Chloride Level 105 mmol/L (98-107) Carbon Dioxide Level 26 mmol/L (21-32) Anion Gap 10 (6-14) Blood Urea Nitrogen 35 mg/dL (7-20) Creatinine 1.7 mg/dL (0.6-1.0) Estimated GFR (Cockcroft-Gault) 37.4 Glucose Level 203 mg/dL (70-99) Calcium Level 8.3 mg/dL (8.5-10.1) O2 Saturation 98 % (92-99) Arterial Blood pH 7.43 (7.35-7.45) Arterial Blood pCO2 at Patient Temp 38 mmHg (35-46) Arterial Blood pO2 at Patient Temp 108 mmHg (75-108) Arterial Blood HCO3 25 mmol/L (21-28) Arterial Blood Base Excess 1 mmol/L (-3-3) FiO2 30/vent Medications Active Scripts Medications Dose Route/Sig Max Daily Dose Days Date Category Entresto 97 mg-103 mg Tablet (Sacubitril/Valsartan) 1 Each Tablet 1 Each PO BID 03/09/19 Reported Corlanor (Ivabradine HCl) 7.5 Mg Tablet 1 Tab PO BID 30 03/09/19 Reported Klor-Con 10 (Potassium Chloride) 10 Meq Tablet.er 1 Tab PO DAILY 30 03/09/19 Reported Carvedilol 25 Mg Tablet 25 Mg PO BIDWMEALS 03/09/19 Reported Bumetanide 1 Mg Tablet 1 Tab PO DAILY 03/09/19 Reported Atorvastatin Calcium 80 Mg Tablet 80 Mg PO DAILY 03/09/19 Reported Spironolactone 25 Mg Tablet 1 Tab PO DAILY 09/01/14 Reported Aspir 81 (Aspirin) 81 Mg Tablet. 1 Tab PO DAILY 09/01/14 Reported Comments CXR 10/28/2019 resolved CHF Impression . IMPRESSION: 1. Acute hypoxic and hypercapnic respiratory failure secondary to cardiac arrest and likely cardiogenic shock.off pressor 2. Diffuse lung infiltrates. Combination of congestive heart failure and aspiration pneumonia. CT chest shows consolidation in the right upper lobe and lower lobes, which may be related to aspiration of secretions. much improved 3. Brief CPR with one round of ACLS protocol. 4. History of known cardiomyopathy with an EF of 30%. 5. No significant tobacco history. 6. Lactic acidosis secondary to hypotension and diminished perfusion. 7. SYDE Plan . 1. AC mode. off sedation. responding. CPAP trial today and possible extubation 2. cxr much better. 3. off Levophed. 4. Follow cardiology recommendations. 5. COVID neg 6. Follow cardiology recommendations. 7. echocardiogram.reviewed. EF 45% 8. off sedation. 9. Discussed with RN, discussed with RT. Critical care time 30 minutes including review of the chart, labs, imaging studies and decision making. AMINA ROGERS MD Oct 28, 2019 10:21
--- NOTE | 2019-10-28 10:21 | RAD ---
Portable chest x-ray compared to similar exam dated October 262023 congestive heart failure. FINDINGS: 3-lead AICD, right central line, endotracheal tube, and enteric tubes are unchanged. Improved aeration with resolution of bibasilar opacities. No new lung parenchymal abnormalities. IMPRESSION: 1. Improved aeration with resolution of basilar opacities and no new lung parenchymal abnormalities. 2. Lines and tubes are stable. Electronically signed by: Sigifredo Schultz MD (10/28/2019 10:18 AM) [id number]
--- NOTE | 2019-10-28 11:29 | CARD ---
MR#: [id number] Date of Study: 10/28/2019 Ordering Physician: JES REYNA, Referring Physician: JES REYNA, Tech: Alysa Acosta [facility] APPROVED REPORT EXAM: Two-dimensional and M-mode echocardiogram with Doppler and color Doppler. Other Information Quality : Good INDICATION Cardiomyopathy Pacemaker 2D DIMENSIONS RVDd2.1 (2.9-3.5cm)Left Atrium(2D)3.4 (1.6-4.0cm) IVSd0.9 (0.7-1.1cm)Aortic Root(2D)2.4 (2.0-3.7cm) LVDd4.8 (3.9-5.9cm)LVOT Diameter1.9 (1.8-2.4cm) PWd0.9 (0.7-1.1cm)LVDs3.5 (2.5-4.0cm) FS (%) 26.6 %SV56.5 ml LVEF(%)51.9 (>50%) Aortic Valve AoV Peak Daryl.141.6cm/sAoV VTI25.8cm AO Peak GR.8.0mmHgLVOT VTI 17.27cm AO Mean GR.5mmHg Mitral Valve MV E Reggtbvp612.2cm/sMV DECEL [id number] MV A Lndhidca77.0cm/sE/A Ratio2.1 TDI Lateral E' P. V4.70cm/sMedial E' P. V4.57cm/s E/Lateral E'24.7E/Medial E'25.4 Tricuspid Valve TR P. Rkkikjij868ou/sRAP [id number] TR Peak Gr.43atKvHRIH66zjXz Pulmonary Vein S1 Toxndbcz82.5cm/sS2 Ufknsmqo29.55cm/s D2 Pscmflnj86.6cm/s LEFT VENTRICLE The left ventricle is normal size. There is normal left ventricular wall thickness. Left ventricle sy stolic function is moderately impaired. The Ejection Fraction is 30-35%. There is global hypokinesis of the left ventricle. Tissue Doppler imaging reveals moderate left ventricular diastolic dysfunction . RIGHT VENTRICLE The right ventricle is normal size. The right ventricular systolic function is normal. ATRIA The left atrium size is normal. The right atrium size is normal. The interatrial septum is intact wit h no evidence for an atrial septal defect or patent foramen ovale as noted on 2-D or Doppler imaging. AORTIC VALVE The aortic valve is normal in structure and function. Doppler and Color Flow revealed no significant aortic regurgitation. There is no significant aortic valvular stenosis. MITRAL VALVE The mitral valve is normal in structure and function. There is no evidence of mitral valve prolapse. There is no mitral valve stenosis. Doppler and Color-flow revealed mild mitral regurgitation. TRICUSPID VALVE The tricuspid valve is normal in structure and function. Doppler and Color Flow revealed trace tricus pid regurgitation. There is moderate pulmonary hypertension. The PA pressure was estimated at 56 mmHg . There is no tricuspid valve stenosis. PULMONIC VALVE The pulmonic valve is not well visualized. Doppler and Color Flow revealed no pulmonic valvular regur gitation. There is no pulmonic valvular stenosis. GREAT VESSELS The aortic root is normal in size. The ascending aorta is normal in size. The IVC is dilated and bertha apses <50% with inspiration. PERICARDIAL EFFUSION There is no evidence of significant pericardial effusion. Critical Notification Critical Value: No <Conclusion> Left ventricle systolic function is moderately impaired. The Ejection Fraction is 30-35%. Tissue Doppler imaging reveals moderate left ventricular diastolic dysfunction. Mild mitral regurgitation. Trace tricuspid regurgitation. There is moderate pulmonary hypertension. The PA pressure was estimated at 56 mmHg. There is no evidence of significant pericardial effusion. Signed by : Isaak Acosta, Electronically Approved : 10/28/2019 11:28:49
[2019-10-28] MEDS: INSULIN LISPRO 300 UNITS/3 ML VIAL. SQ SCH ×3 (11:30→20:36)
[2019-10-28] MEDS ORDERED: DEXTROSE 50% 25 GM / 50ML DISP.SYRIN. IV PRN (11:30)
--- NOTE | 2019-10-28 11:33 | PDOC ---
JES REYNA ALGEBRA TEACHER 10/28/19 1133: CARDIO Progress Notes Date and Time Date of Service 10/28/2019 Time of Evaluation 1020 Subjective Subjective: Other (intubated) Vitals Vitals Vital Signs Date Time Temp Pulse Resp B/P (MAP) Pulse Ox O2 Delivery O2 Flow Rate FiO2 10/28/19 10:41 85 144/75 10/28/19 08:03 99 Ventilator 10/28/19 07:00 12 10/28/19 04:00 98.4 98.4 Weight Weight [ ] Input and Output Intake and Output Intake and Output 10/28/19 07:00 Intake Total 401.03 ml Output Total 790 ml Balance -388.97 ml Intake Oral 80 ml IV Total 321.03 ml Output Urine Total 790 ml Laboratory Labs Laboratory Tests Test 10/27/19 12:09 10/28/19 05:50 10/28/19 07:45 10/28/19 11:09 Glucose (Fingerstick) 179 mg/dL (70-99) 231 mg/dL (70-99) Sodium Level 141 mmol/L (136-145) Potassium Level 3.8 mmol/L (3.5-5.1) Chloride Level 105 mmol/L (98-107) Carbon Dioxide Level 26 mmol/L (21-32) Anion Gap 10 (6-14) Blood Urea Nitrogen 35 mg/dL (7-20) Creatinine 1.7 mg/dL (0.6-1.0) Estimated GFR (Cockcroft-Gault) 37.4 Glucose Level 203 mg/dL (70-99) Calcium Level 8.3 mg/dL (8.5-10.1) O2 Saturation 98 % (92-99) Arterial Blood pH 7.43 (7.35-7.45) Arterial Blood pCO2 at Patient Temp 38 mmHg (35-46) Arterial Blood pO2 at Patient Temp 108 mmHg (75-108) Arterial Blood HCO3 25 mmol/L (21-28) Arterial Blood Base Excess 1 mmol/L (-3-3) FiO2 30/vent Microbiology Micro Microbiology 10/26/19 Blood Culture - Preliminary, Resulted NO GROWTH AFTER 1 DAY Physical Exam HEENT: Neck Supple W Full Motion Chest: Symmetric LUNGS: Other (mech vent) Heart: RRR (V paced), no gallops Abdomen: Other (soft) Extremities: Other (trace to 1+ bilateral LE pitting edema) Neurology: alert, oriented, follow commands Assessment Assessment 1. Acute respiratory failure with acute CHF and cardiomyopathy and possible pneumonia. Pulmonary following. Covid negative 2. Acute on chronic diastolic/systolic CHF: CVP 8. optivol elevated consitent with CHF 3. NICM; LVEF 30-35% 4. VT; known hx. Interrogation revealed sustained episode in 10/25 for 28 minutes. Its below treatment range so no shock delivery. 4 CAD: known nonobstructive. Recent stress test without perfusion defect. 5. Hypertension; controlled 6. Hyperlipidemia; not on goal 7. Diabetes, II 8. SYED 9. BRIAN: uses CPAP at home. 10. Elevated troponin: 0.2. EKG paced rhythm without acute changes 11. Bi-V P[employer]D ([employer]in situ: normal device with 98% V pacing and 8.3% atrial pacing. 3.6 yr battery life. 12. Hx if inappropriate sinus tachycardia: presently 100-120, paced rhythm, on corlanor at home not in hospital formulary Recommendations 1. Presently intubated/vent. weaning off Off pressor. Off dobutamine. Continue bumex therapy and will intensify if UOP is not adequate. 2. Replace K and Mg as warranted. Start on amiodarone protocol. Restart coreg. and will start back on entresto. No aldactone at this time 3. TTE today. Continue HF optimization 4. Optimize statin 5. Renal optimization, consider for outpt ischemic workup 6. [facility]. May need to recalibrate VT treatment range for Justicifation of Admission Dx: Justifications for Admission: Justification of Admission Dx: Yes CHF: Cardiac Arrhythmias Respiratory Failure: Mechanical Ventilation Aspiration Pneumonia: Hemodynamic Instability Sepsis: Altered Mental Status Altered Mental Status: Altered Mental Status SARAH MARSHALL MD 10/28/19 2002: CARDIO Progress Notes Assessment Assessment Patient seen and examined. Agree with CHINCHILLA FARMER's assessment and plan. Acute respiratory failure s/p extubation, continue treatment per pulmonary team. COVID test negative Acute on chronic systolic heart failure better compensated. 2D echo showed LVEF 30-35% Slight troponin elevation probably demand ischemia. Plan ischemic evaluation as outpatient. Device interrogation showed VT not needing shock therapy Agree with amiodarone for antiarrhythmic therapy JES REYNA APRN Oct 28, 2019 11:33 SARAH MARSHALL MD Oct 28, 2019 20:02
--- NOTE | 2019-10-28 11:40 | NUR ---
pt extubated 1033 by RN. physician at bedside. pt on 2L O2 NC. tolerated well.
[2019-10-28] MEDS ORDERED: INSULIN LISPRO 300 UNITS/3 ML VIAL. SQ ONE (11:45)
--- NOTE | 2019-10-28 15:32 | NUR ---
SS following up with discharge planning. SS reviewed pt chart and discussed with pt RN. Pt extubated today and currently requiring oxygen. COVID19 negative. Pt in IV Levaquin. SS will continue to follow for discharge planning.
[2019-10-28] MEDS: METOPROLOL TARTRATE 5 MG/5 ML VIAL. IVP SCH ×2 (17:42→23:57)
[2019-10-28] MEDS: ATORVASTATIN CALCIUM 40 MG TABLET. PO SCH (20:34)
[2019-10-29] VITALS (15 sets, daily range): BP systolic 118–186; BP diastolic 48–95
[2019-10-29 05:17] LABS: BASO # 0.1 x10^3/uL (0.0-0.2); BASO % 1 % (0-3); EOS % 0 % (0-3); HEMATOCRIT 30.3 % (36.0-47.0); HEMOGLOBIN 9.8 g/dL (12.0-15.5); LYMPH # 0.8 x10^3/uL (1.0-4.8); LYMPH % 6 % (24-48); MEAN CORPUSCULAR HEMOGLOBIN 28 pg (25-35); MEAN CORPUSCULAR HGB CONC 33 g/dL (31-37); MEAN CORPUSCULAR VOLUME 85 fL (79-100); MONO # 0.3 x10^3/uL (0.0-1.1); MONO % 2 % (0-9); NEUT # 13.1 x10^3/uL (1.8-7.7); NEUT % 92 % (31-73); PLATELET COUNT 93 x10^3/uL (140-400); RED BLOOD COUNT 3.55 x10^6/uL (3.50-5.40); RED CELL DISTRIBUTION WIDTH 14.4 % (11.5-14.5); WHITE BLOOD COUNT 14.3 x10^3/uL (4.0-11.0)
[2019-10-29 05:28] LABS: CALCIUM 8.4 mg/dL (8.5-10.1); CREATININE 1.3 mg/dL (0.6-1.0); GFR 50.9
--- NOTE | 2019-10-29 05:38 | RAD ---
INDICATION: Reason: RF/CHF 108 / Spl. Instructions: / History: COMPARISON: One day prior FINDINGS: Single view of chest obtained. AICD is again visualized. Right-sided vascular catheter with tip near atriocaval junction region. Endotracheal tube is no longer visualized. Mild haziness in bilateral lower lungs. IMPRESSION: * Lines and tubes as above. * Mild haziness within the bilateral lungs. Could be secondary to mild edema and small airway inflammation from pneumonitis. Electronically signed by: Carlos Dunham MD (10/29/2019 5:35 AM) [id number]
[2019-10-29] MEDS: methylPREDNISolone SOD SUCC PF 125 MG/2 ML VIAL. IV SCH ×3 (06:14→21:15)
[2019-10-29] MEDS: METOPROLOL TARTRATE 5 MG/5 ML VIAL. IVP SCH (06:14)
[2019-10-29] MEDS: HEPARIN for SUB-Q USE 5,000 UNIT/ML VIAL. SQ SCH ×3 (06:15→21:28)
--- NOTE | 2019-10-29 07:51 | PDOC ---
[facility] PROGRESS NOTE Date of Service DOS: DATE: 10/29/19 TIME: 07:51 Chief Complaint Chief Complaint A/P: Right upper and bilateral lower lobe dense consolidations with bilateral ground glass opacities, concerning for pneumonia, edema or ARDS. Acute hypercapnic, hypoxic resp failure CARDIOMYOPATHY ON ECHO 2018, left ventricular systolic function is moderately impaired. EF 30-35% moderate global hypokinesis pacemaker lead in the right ventricle. -echocardiogram.reviewed. 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 Chest x-ray revealed diffuse bilateral infiltrates consistent with CHF. No significant pleural effusion seen. Her ABGs initially showed a pH of 6.9, pCO2 of 81 and a pO2 of 66 with bicarbonate of 17 on 100% FiO2. The patient lost her pulse and had one round of CPR in ED, did have ROSC. She was emergently intubated and had right IJ CVC placed for pressor support. She had repeat ABGs which showed a pH of 7.36, pCO2 of 30 and a pO2 of 231 with a bicarbonate of 17. CTPA revealed no evidence of pulmonary embolism, but did show a consolidation in the right upper lobe and lower lobes and also some ground-glass opacities consistent with CHF. Noted initially hypertensive with a systolic blood pressure in the 200s. She was started on nitro drip but quickly became hypotensive. Nitro was stopped and she was started on low-dose Levophed. 10/26: Seen on vent AC mode 18, tidal volume 500 and 100% FiO2 and 12 of PEEP. Off sedation awakens to painful stimuli. Received albumin for creatinine increased to 1.8 after contrast administration yesterday. Blood pressure requiring pressor support changed to dobutamine. 10/27: Seen on vent AC mode tidal volume 500, 5 of PEEP, 40% FiO2. Creatinine 1.7. Awakens to painful stimuli. On patient AICD interrogation she was noted with 28 minutes of slow V. tach on 10/26/2019 that did not trigger shock due to not crossing the threshold. I discussed with cardiology to initiate amiodarone therapy Afebrile. Seen in ICU. Extubated 10/28/2019. She relates to me that she has been off her medications since May because she was not able to follow-up with cardiology at [facility] due to to patient visit restrictions related COVID-19. Cr 1.3. Plan: Ok to downgrade to CVC Cont Amiodarone per cardiology Restart home medications Vitals/I&O Vitals/I&O: Vital Signs Date Time Temp Pulse Resp B/P (MAP) Pulse Ox O2 Delivery O2 Flow Rate FiO2 10/29/19 07:00 80 20 169/82 (111) 98 Room Air 10/29/19 04:00 98.3 98.3 10/28/19 22:00 2.0 I & O 10/28/19 10/28/19 10/29/19 15:00 23:00 07:00 Intake Total 353 ml 596.2 ml 178 ml Output Total 895 ml 280 ml 365 ml Balance -542 ml 316.2 ml -187 ml Physical Exam General: Alert, Oriented X3, Cooperative, mild distress Heart: Other (AV paced) Lungs: Clear Abdomen: Other (obese) Extremities: Other (LE edema) Skin: No breakdown Labs Labs: Laboratory Tests Test 10/28/19 11:09 10/28/19 16:51 10/28/19 20:36 10/29/19 05:00 Glucose (Fingerstick) 231 mg/dL (70-99) 201 mg/dL (70-99) 159 mg/dL (70-99) White Blood Count 14.3 x10^3/uL (4.0-11.0) Red Blood Count 3.55 x10^6/uL (3.50-5.40) Hemoglobin 9.8 g/dL (12.0-15.5) Hematocrit 30.3 % (36.0-47.0) Mean Corpuscular Volume 85 fL (79-100) Mean Corpuscular Hemoglobin 28 pg (25-35) Mean Corpuscular Hemoglobin Concent 33 g/dL (31-37) Red Cell Distribution Width 14.4 % (11.5-14.5) Platelet Count 93 x10^3/uL (140-400) Neutrophils (%) (Auto) 92 % (31-73) Lymphocytes (%) (Auto) 6 % (24-48) Monocytes (%) (Auto) 2 % (0-9) Eosinophils (%) (Auto) 0 % (0-3) Basophils (%) (Auto) 1 % (0-3) Neutrophils # (Auto) 13.1 x10^3/uL (1.8-7.7) Lymphocytes # (Auto) 0.8 x10^3/uL (1.0-4.8) Monocytes # (Auto) 0.3 x10^3/uL (0.0-1.1) Eosinophils # (Auto) 0.0 x10^3/uL (0.0-0.7) Basophils # (Auto) 0.1 x10^3/uL (0.0-0.2) Sodium Level 139 mmol/L (136-145) Potassium Level 4.0 mmol/L (3.5-5.1) Chloride Level 106 mmol/L (98-107) Carbon Dioxide Level 27 mmol/L (21-32) Anion Gap 6 (6-14) Blood Urea Nitrogen 39 mg/dL (7-20) Creatinine 1.3 mg/dL (0.6-1.0) Estimated GFR (Cockcroft-Gault) 50.9 Glucose Level 183 mg/dL (70-99) Calcium Level 8.4 mg/dL (8.5-10.1) Test 10/29/19 07:38 Glucose (Fingerstick) 195 mg/dL (70-99) Comment Review of Relevant I have reviewed the following items marcelina (where applicable) has been applied. Medications: Current Medications Medications (Trade) Dose Ordered Sig/Marilee Route PRN Reason Start Time Stop Time Status Last Admin Dose Admin Aspirin (Aspirin Chewable) 81 mg [id number] PO 10/28/19 08:00 10/28/19 09:51 Potassium Chloride/Water 100 ml @ 100 mls/hr Q1H IV 10/28/19 09:30 10/28/19 10:29 DC 10/28/19 09:58 Bumetanide (Bumex) 1 mg DAILY IV 10/29/19 09:00 10/28/19 09:53 Amiodarone HCl 150 mg/Dextrose 103 ml @ 600 mls/hr 1X ONCE IV 10/28/19 10:00 10/28/19 10:10 DC 10/28/19 10:41 Amiodarone HCl 450 mg/Dextrose 259 ml @ 0 mls/hr CONT PRN IV SEE I/O RECORD 10/28/19 09:45 10/29/19 09:44 10/28/19 11:20 Insulin Human Lispro (HumaLOG) 6 units 1X ONCE SQ 10/28/19 11:45 10/28/19 11:46 DC 10/28/19 12:02 Insulin Human Lispro (HumaLOG) 0-7 UNITS TIDACHC SQ 10/28/19 11:30 10/28/19 17:01 Metoprolol Tartrate (Lopressor Vial) 5 mg Q6HRS IVP 10/28/19 18:00 10/29/19 06:14 Justicifation of Admission Dx: Justifications for Admission: Justification of Admission Dx: Yes CHF: Cardiac Arrhythmias Respiratory Failure: Mechanical Ventilation Aspiration Pneumonia: Hemodynamic Instability Sepsis: Altered Mental Status Altered Mental Status: Altered Mental Status SEGUNDO HERNANDEZ MD Oct 29, 2019 07:51
[2019-10-29] MEDS: ASPIRIN CHEWABLE 81 MG TABLET. PO SCH (08:40)
[2019-10-29] MEDS: CARVEDILOL 12.5 MG TABLET. PO SCH ×2 (08:41→17:00)
[2019-10-29] MEDS: POTASSIUM CHLORIDE 10 MEQ TABLET.ER. PO SCH (08:41)
[2019-10-29] MEDS: SACUBITRIL/VALSARTAN 49/51MG TABLET. PO SCH ×2 (08:42→21:14)
[2019-10-29] MEDS: AMIODARONE HCL 200 MG TABLET. PO SCH (08:42)
[2019-10-29] MEDS: INSULIN LISPRO 300 UNITS/3 ML VIAL. SQ SCH ×4 (08:44→20:44)
[2019-10-29] MEDS: ELECTROLYTE (ICU) PROTOCOL. MC SCH (08:47)
[2019-10-29] MEDS ORDERED: BUMETANIDE 1 MG/4 ML VIAL. IV SCH (09:00)
[2019-10-29] MEDS: DOCUSATE SODIUM 100 MG CAPSULE. PO SCH ×2 (09:01→21:14)
[2019-10-29] MEDS: FAMOTIDINE 20 MG TABLET. PO SCH ×2 (09:01→21:13)
[2019-10-29] MEDS: BUMETANIDE 1 MG/4 ML VIAL. IV SCH (09:02)
--- NOTE | 2019-10-29 09:35 | PDOC ---
PULMONARY PROGRESS NOTES DATE: 10/29/19 TIME: 09:31 Subjective PT. extubated 10/28/2019, now on room air NO CP, NO SOA, No increased cough up to chair today eating breakfast, wore BIPAP last night Vitals Vital Signs Date Time Temp Pulse Resp B/P (MAP) Pulse Ox O2 Delivery O2 Flow Rate FiO2 10/29/19 09:00 79 30 179/95 (123) 99 Room Air 10/29/19 08:00 98.3 98.3 10/28/19 22:00 2.0 ROS: No Nausea, No Chest Pain, No Abdominal Pain, No Increase Cough General: Alert, No acute distress Lungs: Clear Cardiovascular: S1 Abdomen: Soft Neuro Exam: Alert Extremities: Other (1+edema) Skin: Warm, Dry Labs Laboratory Tests Test 10/27/19 12:09 10/28/19 05:50 10/28/19 07:45 10/28/19 11:09 Glucose (Fingerstick) 179 mg/dL (70-99) 231 mg/dL (70-99) Sodium Level 141 mmol/L (136-145) Potassium Level 3.8 mmol/L (3.5-5.1) Chloride Level 105 mmol/L (98-107) Carbon Dioxide Level 26 mmol/L (21-32) Anion Gap 10 (6-14) Blood Urea Nitrogen 35 mg/dL (7-20) Creatinine 1.7 mg/dL (0.6-1.0) Estimated GFR (Cockcroft-Gault) 37.4 Glucose Level 203 mg/dL (70-99) Calcium Level 8.3 mg/dL (8.5-10.1) O2 Saturation 98 % (92-99) Arterial Blood pH 7.43 (7.35-7.45) Arterial Blood pCO2 at Patient Temp 38 mmHg (35-46) Arterial Blood pO2 at Patient Temp 108 mmHg (75-108) Arterial Blood HCO3 25 mmol/L (21-28) Arterial Blood Base Excess 1 mmol/L (-3-3) FiO2 30/vent Test 10/28/19 16:51 10/28/19 20:36 10/29/19 05:00 10/29/19 07:38 Glucose (Fingerstick) 201 mg/dL (70-99) 159 mg/dL (70-99) 195 mg/dL (70-99) White Blood Count 14.3 x10^3/uL (4.0-11.0) Red Blood Count 3.55 x10^6/uL (3.50-5.40) Hemoglobin 9.8 g/dL (12.0-15.5) Hematocrit 30.3 % (36.0-47.0) Mean Corpuscular Volume 85 fL (79-100) Mean Corpuscular Hemoglobin 28 pg (25-35) Mean Corpuscular Hemoglobin Concent 33 g/dL (31-37) Red Cell Distribution Width 14.4 % (11.5-14.5) Platelet Count 93 x10^3/uL (140-400) Neutrophils (%) (Auto) 92 % (31-73) Lymphocytes (%) (Auto) 6 % (24-48) Monocytes (%) (Auto) 2 % (0-9) Eosinophils (%) (Auto) 0 % (0-3) Basophils (%) (Auto) 1 % (0-3) Neutrophils # (Auto) 13.1 x10^3/uL (1.8-7.7) Lymphocytes # (Auto) 0.8 x10^3/uL (1.0-4.8) Monocytes # (Auto) 0.3 x10^3/uL (0.0-1.1) Eosinophils # (Auto) 0.0 x10^3/uL (0.0-0.7) Basophils # (Auto) 0.1 x10^3/uL (0.0-0.2) Sodium Level 139 mmol/L (136-145) Potassium Level 4.0 mmol/L (3.5-5.1) Chloride Level 106 mmol/L (98-107) Carbon Dioxide Level 27 mmol/L (21-32) Anion Gap 6 (6-14) Blood Urea Nitrogen 39 mg/dL (7-20) Creatinine 1.3 mg/dL (0.6-1.0) Estimated GFR (Cockcroft-Gault) 50.9 Glucose Level 183 mg/dL (70-99) Calcium Level 8.4 mg/dL (8.5-10.1) Laboratory Tests Test 10/28/19 11:09 10/28/19 16:51 10/28/19 20:36 10/29/19 05:00 Glucose (Fingerstick) 231 mg/dL (70-99) 201 mg/dL (70-99) 159 mg/dL (70-99) White Blood Count 14.3 x10^3/uL (4.0-11.0) Red Blood Count 3.55 x10^6/uL (3.50-5.40) Hemoglobin 9.8 g/dL (12.0-15.5) Hematocrit 30.3 % (36.0-47.0) Mean Corpuscular Volume 85 fL (79-100) Mean Corpuscular Hemoglobin 28 pg (25-35) Mean Corpuscular Hemoglobin Concent 33 g/dL (31-37) Red Cell Distribution Width 14.4 % (11.5-14.5) Platelet Count 93 x10^3/uL (140-400) Neutrophils (%) (Auto) 92 % (31-73) Lymphocytes (%) (Auto) 6 % (24-48) Monocytes (%) (Auto) 2 % (0-9) Eosinophils (%) (Auto) 0 % (0-3) Basophils (%) (Auto) 1 % (0-3) Neutrophils # (Auto) 13.1 x10^3/uL (1.8-7.7) Lymphocytes # (Auto) 0.8 x10^3/uL (1.0-4.8) Monocytes # (Auto) 0.3 x10^3/uL (0.0-1.1) Eosinophils # (Auto) 0.0 x10^3/uL (0.0-0.7) Basophils # (Auto) 0.1 x10^3/uL (0.0-0.2) Sodium Level 139 mmol/L (136-145) Potassium Level 4.0 mmol/L (3.5-5.1) Chloride Level 106 mmol/L (98-107) Carbon Dioxide Level 27 mmol/L (21-32) Anion Gap 6 (6-14) Blood Urea Nitrogen 39 mg/dL (7-20) Creatinine 1.3 mg/dL (0.6-1.0) Estimated GFR (Cockcroft-Gault) 50.9 Glucose Level 183 mg/dL (70-99) Calcium Level 8.4 mg/dL (8.5-10.1) Test 8/6/20 07:38 Glucose (Fingerstick) 195 mg/dL (70-99) Medications Active Scripts Medications Dose Route/Sig Max Daily Dose Days Date Category Entresto 97 mg-103 mg Tablet (Sacubitril/Valsartan) 1 Each Tablet 1 Each PO BID 03/09/19 Reported Corlanor (Ivabradine HCl) 7.5 Mg Tablet 1 Tab PO BID 30 03/09/19 Reported Klor-Con 10 (Potassium Chloride) 10 Meq Tablet.er 1 Tab PO DAILY 30 03/09/19 Reported Carvedilol 25 Mg Tablet 25 Mg PO BIDWMEALS 03/09/19 Reported Bumetanide 1 Mg Tablet 1 Tab PO DAILY 03/09/19 Reported Atorvastatin Calcium 80 Mg Tablet 80 Mg PO DAILY 03/09/19 Reported Spironolactone 25 Mg Tablet 1 Tab PO DAILY 09/01/14 Reported Aspir 81 (Aspirin) 81 Mg Tablet.dr 1 Tab PO DAILY 09/01/14 Reported Comments CXR 10/28/2019 resolved CHF Impression . IMPRESSION: 1. Acute hypoxic and hypercapnic respiratory failure secondary to cardiac arrest and likely cardiogenic shock.off pressor-- off pressors, now resolved 2. Diffuse lung infiltrates. Combination of congestive heart failure and aspiration pneumonia. CT chest shows consolidation in the right upper lobe and lower lobes, which may be related to aspiration of secretions. much improved 3. Brief CPR with one round of ACLS protocol. 4. History of known cardiomyopathy with an EF of 30%. 5. No significant tobacco history. 6. Lactic acidosis secondary to hypotension and diminished perfusion. 7. SYED--improving Plan . Cont. R/A, and BIPAP at night and PRN with napping, extubated on 10/28/2019 off Levophed. Cont. ABXS Follow cardiology recommendations. COVID neg Follow cardiology recommendations---echocardiogram.reviewed. EF 45% HTN per cardiology and PCP Discussed with RN tahira to transfer out of ICU today AMINA ROGERS MD Oct 29, 2019 09:35
--- NOTE | 2019-10-29 10:28 | NUR ---
SS following up with discharge planning. SS reviewed pt chart and discussed with pt RN. Pt is currently on room air and IV Levaquin. COVID19 negative. Pt is CVC downgrade. Discharge plan is to home when ready. SS will continue to follow for discharge planning.
[2019-10-29] MEDS: hydrALAZINE 20 MG/ML VIAL. IVP PRN (11:07)
--- NOTE | 2019-10-29 11:34 | PDOC ---
JES REYNA HISTOLOGIST TECHNOLOGIST 10/29/19 1134: CARDIO Progress Notes Date and Time Date of Service 10/29/2019 Time of Evaluation 0900 Subjective Subjective: No Chest Pain, No shortness of breath, No Palpitations, Other (sitting up, feeling much better) Vitals Vitals Vital Signs Date Time Temp Pulse Resp B/P (MAP) Pulse Ox O2 Delivery O2 Flow Rate FiO2 10/29/19 11:07 79 186/92 10/29/19 11:00 29 98 Room Air 10/29/19 08:00 98.3 98.3 10/28/19 22:00 2.0 Weight Weight [ ] Input and Output Intake and Output Intake and Output 10/29/19 07:00 Intake Total 1127.2 ml Output Total 1540 ml Balance -412.8 ml IV Total 1127.2 ml Output Urine Total 1540 ml Laboratory Labs Laboratory Tests Test 10/28/19 16:51 10/28/19 20:36 10/29/19 05:00 10/29/19 07:38 Glucose (Fingerstick) 201 mg/dL (70-99) 159 mg/dL (70-99) 195 mg/dL (70-99) White Blood Count 14.3 x10^3/uL (4.0-11.0) Red Blood Count 3.55 x10^6/uL (3.50-5.40) Hemoglobin 9.8 g/dL (12.0-15.5) Hematocrit 30.3 % (36.0-47.0) Mean Corpuscular Volume 85 fL (79-100) Mean Corpuscular Hemoglobin 28 pg (25-35) Mean Corpuscular Hemoglobin Concent 33 g/dL (31-37) Red Cell Distribution Width 14.4 % (11.5-14.5) Platelet Count 93 x10^3/uL (140-400) Neutrophils (%) (Auto) 92 % (31-73) Lymphocytes (%) (Auto) 6 % (24-48) Monocytes (%) (Auto) 2 % (0-9) Eosinophils (%) (Auto) 0 % (0-3) Basophils (%) (Auto) 1 % (0-3) Neutrophils # (Auto) 13.1 x10^3/uL (1.8-7.7) Lymphocytes # (Auto) 0.8 x10^3/uL (1.0-4.8) Monocytes # (Auto) 0.3 x10^3/uL (0.0-1.1) Eosinophils # (Auto) 0.0 x10^3/uL (0.0-0.7) Basophils # (Auto) 0.1 x10^3/uL (0.0-0.2) Sodium Level 139 mmol/L (136-145) Potassium Level 4.0 mmol/L (3.5-5.1) Chloride Level 106 mmol/L (98-107) Carbon Dioxide Level 27 mmol/L (21-32) Anion Gap 6 (6-14) Blood Urea Nitrogen 39 mg/dL (7-20) Creatinine 1.3 mg/dL (0.6-1.0) Estimated GFR (Cockcroft-Gault) 50.9 Glucose Level 183 mg/dL (70-99) Calcium Level 8.4 mg/dL (8.5-10.1) Microbiology Micro Microbiology 10/26/19 Blood Culture - Preliminary, Resulted NO GROWTH AFTER 2 DAYS Physical Exam HEENT: Neck Supple W Full Motion Chest: Symmetric LUNGS: Other (diminished) Heart: RRR (V paced) Abdomen: Other (soft) Extremities: Other (trace to 1+ bilateral LE pitting edema) Neurology: alert, oriented, follow commands Assessment Assessment 1. Acute respiratory failure with acute CHF and cardiomyopathy and aspiration pneumonia. Pulmonary following. Covid negative 2. Acute on chronic diastolic/systolic CHF: VT as a contributing factor. 3. NICM; LVEF 30-35% 4. VT; known hx. Interrogation revealed sustained episode in 10/25 for 28 minutes. Its below treatment range so no shock delivery. No further recurrence 4 CAD: known nonobstructive. Recent stress test without perfusion defect. 5. Hypertension; controlled 6. Hyperlipidemia; not on goal 7. Diabetes, II 8. SYED: improving 9. BRIAN: uses CPAP at home. 10. Elevated troponin: 0.2. EKG paced rhythm without acute changes, suspect demand mediated 11. 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 3.6 yr battery life. V pacing 12. Hx if inappropriate sinus tachycardia: presently 100-120, paced rhythm, on corlanor at home not in hospital formulary. rate better Recommendations 1. Off amiodarone drip, continue PO amiodarone. If VT recurs then will adjust treatment setting otherwise will defer any further adjustment to [facility] cardiology. Pt does not has a manual download with her device. Discussed this significantly to pt for immediate download for any symptomatic event in the future. 2. Will restart coreg and entresto at lower dosing and titrate up per BP trend and renal function. Continue with HF optimization 3. Optimize statin 4. Consider for outpt ischemic workup Justicifation of Admission Dx: Justifications for Admission: Justification of Admission Dx: Yes CHF: Cardiac Arrhythmias Respiratory Failure: Mechanical Ventilation Aspiration Pneumonia: Hemodynamic Instability Sepsis: Altered Mental Status Altered Mental Status: Altered Mental Status SARAH MARSHALL MD 10/29/19 1718: CARDIO Progress Notes Assessment Assessment Patient seen and examined. Agree with CREATIVE COORDINATOR's assessment and plan. Acute respiratory failure improved, continue treatment per pulmonary team. COVID test negative Acute on chronic systolic heart failure better compensated. 2D echo showed LVEF 30-35% Slight troponin elevation probably demand ischemia. Plan ischemic evaluation as outpatient. Device interrogation showed VT not needing shock therapy Patient completed intravenous loading dose of amiodarone. Continue oral amiodarone. Agree with resuming Coreg and Entresto JES REYNA APRN Oct 29, 2019 11:34 SARAH MARSHALL MD Oct 29, 2019 17:18
--- NOTE | 2019-10-29 15:21 | NUR ---
1500 Transfer per W/C received from ICU 108 to 244. Condition improved .On RA, lungs clear. Reinforced call light use for assist.
[2019-10-29] MEDS: LACTOBACILLUS RHAMNOSUS GG 1 CAPSULE. PO SCH (21:13)
[2019-10-29] MEDS: ATORVASTATIN CALCIUM 40 MG TABLET. PO SCH (21:14)
[2019-10-30 03:00] VITALS: BP 162/92
[2019-10-30] MEDS: HEPARIN for SUB-Q USE 5,000 UNIT/ML VIAL. SQ SCH (06:00)
[2019-10-30] MEDS: methylPREDNISolone SOD SUCC PF 125 MG/2 ML VIAL. IV SCH (06:21)
[2019-10-30 07:00] VITALS: BP 143/83
[2019-10-30] MEDS ORDERED: CARVEDILOL 12.5 MG TABLET. PO SCH (08:00)
[2019-10-30] MEDS: AMIODARONE HCL 200 MG TABLET. PO SCH (08:23)
[2019-10-30] MEDS: SACUBITRIL/VALSARTAN 49/51MG TABLET. PO SCH (08:23)
[2019-10-30] MEDS: ASPIRIN CHEWABLE 81 MG TABLET. PO SCH (08:23)
[2019-10-30] MEDS: FAMOTIDINE 20 MG TABLET. PO SCH (08:23)
[2019-10-30] MEDS: LACTOBACILLUS RHAMNOSUS GG 1 CAPSULE. PO SCH (08:24)
[2019-10-30] MEDS: POTASSIUM CHLORIDE 10 MEQ TABLET.ER. PO SCH (08:24)
[2019-10-30] MEDS: DOCUSATE SODIUM 100 MG CAPSULE. PO SCH (08:24)
[2019-10-30] MEDS: BUMETANIDE 1 MG/4 ML VIAL. IV SCH (08:25)
--- NOTE | 2019-10-30 08:29 | RAD ---
AP chest. HISTORY: CHF, renal failure AP view was taken of the chest. Right central line is in good position without change. Heart is within normal limits in size on today's study. Right pacemaker is unchanged. There has been an improvement in the vascular congestion. Lungs are now clear. IMPRESSION: 1. Improved vascular congestion. 2. Lungs are now clear. 3. Central line unchanged. Electronically signed by: Siddharth Gentile MD (10/30/2019 8:26 AM) [id number]
[2019-10-30] MEDS: INSULIN LISPRO 300 UNITS/3 ML VIAL. SQ SCH (08:48)
[2019-10-30 11:00] VITALS: BP 134/81
--- NOTE | 2019-10-30 11:17 | PDOC ---
JES REYNA SAUSAGE MAKER 10/30/19 1117: CARDIO Progress Notes Date and Time Date of Service 10/30/2019 Time of Evaluation 1040 Subjective Subjective: No Chest Pain, No shortness of breath, No Palpitations Vitals Vitals Vital Signs Date Time Temp Pulse Resp B/P (MAP) Pulse Ox O2 Delivery O2 Flow Rate FiO2 10/30/19 08:28 78 162/92 10/30/19 08:00 Room Air 10/30/19 07:00 98.1 20 98 98.1 Weight Weight [ ] Input and Output Intake and Output Intake and Output 10/30/19 07:00 Intake Total 1090 ml Output Total 1355 ml Balance -265 ml Intake Oral 1090 ml Output Urine Total 1355 ml Laboratory Labs Laboratory Tests Test 10/29/19 12:17 10/29/19 17:27 10/29/19 20:33 10/30/19 07:31 Glucose (Fingerstick) 195 mg/dL (70-99) 165 mg/dL (70-99) 179 mg/dL (70-99) 198 mg/dL (70-99) Microbiology Micro Microbiology 10/26/19 Blood Culture - Preliminary, Resulted NO GROWTH AFTER 3 DAYS Physical Exam HEENT: Neck Supple W Full Motion Chest: Symmetric LUNGS: Other (diminished) Heart: RRR (V paced) Abdomen: Other (soft) Extremities: Other (trace to 1+ bilateral LE pitting edema) Neurology: alert, oriented, follow commands Assessment Assessment 1. Acute respiratory failure with acute CHF and cardiomyopathy and aspiration pneumonia. Pulmonary following. Covid negative 2. Acute on chronic diastolic/systolic CHF: VT as a contributing factor. Well compensated 3. NICM; LVEF 30-35% 4. VT; known hx. Interrogation revealed sustained episode in 10/25 for 28 minutes. Its below treatment range so no shock delivery. No further recurrence 4 CAD: known nonobstructive. Recent stress test without perfusion defect. 5. Hypertension; controlled with some labile episode 6. Hyperlipidemia; not on goal 7. Diabetes, II 8. SYED: improving 9. BRIAN: uses CPAP at home. 10. Elevated troponin: 0.2. EKG paced rhythm without acute changes, suspect demand mediated 11. 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 3.6 yr battery life. V pacing 12. Hx if inappropriate sinus tachycardia: presently 100-120, paced rhythm, on corlanor at home not in hospital formulary. rate better Recommendations 1. Off amiodarone drip, continue PO amiodarone. If VT recurs then will adjust treatment setting otherwise will defer any further adjustment to cardiology. Pt does not has a manual download with her device. Discussed this significan tly to pt for immediate download for any symptomatic event in the future. 2. Resume high dose coreg and may restart mod dosing entresto.upon DC. Continue with HF optimization. Will need outpt BMP and Mg in 1-2 weeks. She does have a follow up with her primary equipment maintenance superintendent on November 08. May DC per cardiac standpoint. 3. Optimize statin. Bumex therapy 4. Consider for outpt ischemic workup Justicifation of Admission Dx: Justifications for Admission: Justification of Admission Dx: Yes CHF: Cardiac Arrhythmias Respiratory Failure: Mechanical Ventilation Aspiration Pneumonia: Hemodynamic Instability Sepsis: Altered Mental Status Altered Mental Status: Altered Mental Status SARAH MARSHALL MD 10/30/19 1540: CARDIO Progress Notes Assessment Assessment Patient seen and examined. Agree with PRACTICE NURSE's assessment and plan. Acute respiratory failure improved, continue treatment per pulmonary team. COVID test negative Acute on chronic systolic heart failure better compensated. 2D echo showed LVEF 30-35% Slight troponin elevation probably demand ischemia. Plan ischemic evaluation as outpatient. Device interrogation showed VT not needing shock therapy Continue amiodarone for antiarrhythmic therapy. Continue other medications including Entresto. JES REYNA APRN Oct 30, 2019 11:17 SARAH MARSHALL MD Oct 30, 2019 15:40
[2019-10-30] MEDS ORDERED: BUME1TAB3 PO (11:43)
[2019-10-30] MEDS ORDERED: PRED20TA PO (11:43)
[2019-10-30] MEDS ORDERED: CARV25TA2 PO (11:43)
[2019-10-30] MEDS ORDERED: LEVO500T59 PO (11:43)
[2019-10-30] MEDS ORDERED: SACU1TAB7 PO (11:43)
[2019-10-30] MEDS ORDERED: ATOR80TA72 PO (11:43)
[2019-10-30] MEDS ORDERED: SPIR25TA5 PO (11:43)
--- NOTE | 2019-10-30 11:49 | SNU/HH DC ---
DISCHARGE WITH HOME HEALTH DISCHARGE INFORMATION: Discharge Date: Oct 30, 2019 Final Diagnosis: Acute CHF, Ventricular tachycardia Condition on Discharge: Stable CODE STATUS: Code Status: Full HOME HEALTH: Face to Face: I certify this patient is under my care and that I, or a nurse practitioner or physician's nutrition services assistant working with me, had a face to face encounter that meets the physician face to face encounter requirements with this patient on 10/30/2019. Medical Complications: CHF Halfway For: Assess/Skilled Observatio RN For Eval/Treatment: Yes Physical Therapy For: Evalulation/Treatment Occupational Therapy For: Evaluation/Treatment Pt Meets Homebound Status: Unsteady balance w/ amb, POST DISCHARGE ORDERS: Activity Instructions for Disc: Activity as tolerated Weight Bearing Status after Di: Full weight bearing DIET AFTER DISCHARGE: Cardiac CHECKS AFTER DISCHARGE: Checks after discharge: Check blood press - daily TREATMENT/EQUIPMENT ORDERS: Adaptive Equipment Issued: None Discharge Respiratory Equipmen: BiPAP CERTIFICATION STATEMENT: Certification Statement: Certification Statement: Based on the above finding, I certify that this patient is confined to the home and needs intermittent detention care, physical therapy and/or speech therapy, or continues to need occupational therapy.~ This patient is under my care, and I have initiated the establishment of the plan of care.~ This patient will be followed by myself or a community physician who will periodically review the plan of care. Home Meds Active Scripts Prednisone (PREDNISONE) 20 Mg Tablet, 1 TAB PO DAILY for Pneumonia for 5 Days, #5 TAB Prov:SEGUNDO HERNANDEZ MD 10/30/19 Levofloxacin (LEVAQUIN) 500 Mg Tablet, 1 TAB PO DAILY for Pneumonia for 5 Days, #5 TAB 0 Refills Prov:SEGUNDO HERNANDEZ MD 10/30/19 Sacubitril/Valsartan (Entresto 49 mg-51 mg Tablet) 1 Each Tablet, 1 TAB PO BID for CHF for 90 Days, #180 TAB Prov:SEGUNDO HERNANDEZ MD 10/30/19 Carvedilol (CARVEDILOL) 25 Mg Tablet, 25 MG PO BIDWMEALS for CARDIAC for 90 Days, #180 TAB Prov:SEGUNDO HERNANDEZ MD 10/30/19 Bumetanide (BUMETANIDE) 1 Mg Tablet, 1 TAB PO DAILY for chf for 90 Days, #90 TAB 1 Refill Prov:SEGUNDO HERNANDEZ MD 10/30/19 Atorvastatin Calcium (Atorvastatin Calcium) 80 Mg Tablet, 80 MG PO DAILY for FOR HIGH CHOLESTEROL for 90 Days, #90 TAB Prov:SEGUNDO HERNANDEZ MD 10/30/19 Spironolactone (SPIRONOLACTONE) 25 Mg Tablet, 1 TAB PO DAILY for CHF for 90 Days, #90 TAB 1 Refill Prov:SEGUNDO HERNANDEZ MD 10/30/19 Reported Medications Ivabradine HCl (Corlanor) 7.5 Mg Tablet, 1 TAB PO BID for cardiomegaly for 30 Days, #60 TAB 0 Refills 03/09/19 Aspirin (ASPIR 81) 81 Mg Tablet.dr, 1 TAB PO DAILY, #30 TAB 5 Refills 09/01/14 Discontinued Reported Medications Sacubitril/Valsartan (Entresto 97 mg-103 mg Tablet) 1 Each Tablet, 1 EACH PO BID for CHF, TAB 03/09/19 Potassium Chloride (Klor-Con 10) 10 Meq Tablet.er, 1 TAB PO DAILY for maintenance for 30 Days, #30 TAB 0 Refills 03/09/19 SEGUNDO HERNANDEZ MD Oct 30, 2019 11:49
--- NOTE | 2019-10-30 11:58 | PDOC ---
[employer] PROGRESS NOTE Date of Service DOS: DATE: 10/30/19 TIME: 11:54 Chief Complaint Chief Complaint A/P: Right upper and bilateral lower lobe dense consolidations with bilateral ground glass opacities, concerning for pneumonia, edema or ARDS. Acute hypercapnic, hypoxic resp failure CARDIOMYOPATHY ON ECHO 2018, left ventricular systolic function is moderately impaired. EF 30-35% moderate global hypokinesis pacemaker lead in the right ventricle. -echocardiogram.reviewed. EF 45% post cardiac arrest in er Cardiogenic shock SYED - vasomotor nephropathy Thrombocytopenia Leukocytosis Ventricular tachycardia Acute respiratory failure with acute CHF and cardiomyopathy and aspiration pneumonia. Pulmonary following. Covid negative Acute on chronic diastolic/systolic CHF: VT as a contributing factor. VT; known hx. Interrogation revealed sustained episode in 10/25 for 28 minutes. Its below treatment range so no shock delivery. No further recurrence - on corlanor at home not in hospital formulary. rate better on amio, will defer to cardiology for discharge med Amio CAD: known nonobstructive. Recent stress test without perfusion defect. Hypertension; controlled Hyperlipidemia; not on goal Diabetes, II BRIAN: uses CPAP at home. Elevated troponin: 0.2. EKG paced rhythm without acute changes, suspect demand mediated Bi-V FOOD SERVICE ASSOCIATE-D ([employer]).in situ: normal device with 98% V pacing and 8.3% atrial pacing. 3.6 yr battery life. 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 Chest x-ray revealed diffuse bilateral infiltrates consistent with CHF. No significant pleural effusion seen. Her ABGs initially showed a pH of 6.9, pCO2 of 81 and a pO2 of 66 with bicarbonate of 17 on 100% FiO2. The patient lost her pulse and had one round of CPR in ED, did have ROSC. She was emergently intubated and had right IJ CVC placed for pressor support. She had repeat ABGs which showed a pH of 7.36, pCO2 of 30 and a pO2 of 231 with a bicarbonate of 17. CTPA revealed no evidence of pulmonary embolism, but did show a consolidation in the right upper lobe and lower lobes and also some ground-glass opacities consistent with CHF. Noted initially hypertensive with a systolic blood pressure in the 200s. She was started on nitro drip but quickly became hypotensive. Nitro was stopped and she was started on low-dose Levophed. 10/26: Seen on vent AC mode 18, tidal volume 500 and 100% FiO2 and 12 of PEEP. Off sedation awakens to painful stimuli. Received albumin for creatinine increased to 1.8 after contrast administration yesterday. Blood pressure requiring pressor support changed to dobutamine. 10/27: Seen on vent AC mode tidal volume 500, 5 of PEEP, 40% FiO2. Creatinine 1.7. Awakens to painful stimuli. On patient AICD interrogation she was noted with 28 minutes of slow V. tach on 10/26/2019 that did not trigger shock due to not crossing the threshold. I discussed with cardiology to initiate amiodarone therapy 10/28: Afebrile. Seen in ICU. Extubated 10/28/2019. She relates to me that she has been off her medications since May because she was not able to follow-up with cardiology at [facility] due to to patient visit restrictions related COVID-19. Cr 1.3. Afebrile. Breathing better, was on her home bipap settings overnight. Labs stabilized Plan: Cont Amiodarone per cardiology Restarted home medications D/c home with home health Vitals/I&O Vitals/I&O: Vital Signs Date Time Temp Pulse Resp B/P (MAP) Pulse Ox O2 Delivery O2 Flow Rate FiO2 10/30/19 11:00 96.8 81 20 134/81 (98) 96 Room Air 96.8 I & O 10/29/19 10/29/19 10/30/19 15:00 23:00 07:00 Intake Total 240 ml 450 ml 400 ml Output Total 555 ml 600 ml 200 ml Balance -315 ml -150 ml 200 ml Physical Exam General: Alert, Oriented X3, Cooperative, mild distress Heart: Other (AV paced) Lungs: Clear Abdomen: Other (obese) Extremities: Other (LE edema) Skin: No breakdown Labs Labs: Laboratory Tests Test 10/29/19 12:17 10/29/19 17:27 10/29/19 20:33 10/30/19 07:31 Glucose (Fingerstick) 195 mg/dL (70-99) 165 mg/dL (70-99) 179 mg/dL (70-99) 198 mg/dL (70-99) Comment Review of Relevant I have reviewed the following items marcelina (where applicable) has been applied. Medications: Current Medications Medications (Trade) Dose Ordered Sig/Marilee Route PRN Reason Start Time Stop Time Status Last Admin Dose Admin Lactobacillus Rhamnosus (Culturelle) 1 cap BID PO 10/29/19 21:00 10/30/19 08:24 Carvedilol (Coreg) 25 mg BIDWMEALS PO 10/30/19 08:00 10/30/19 08:28 Justicifation of Admission Dx: Justifications for Admission: Justification of Admission Dx: Yes CHF: Cardiac Arrhythmias Respiratory Failure: Mechanical Ventilation Aspiration Pneumonia: Hemodynamic Instability Sepsis: Altered Mental Status Altered Mental Status: Altered Mental Status SEGUNDO HERNANDEZ MD Oct 30, 2019 11:58
--- NOTE | 2019-10-30 12:00 | PDOC3 ---
Discharge Summary Visit Information Date of Admission: Oct 26, 2019 Date of Discharge: Oct 30, 2019 Admitting Diagnosis: Acute hypoxic respiratory failure Final Diagnosis Ventricular tachycardia, acute systolic CHF Brief Hospital Course Allergies Allergies Coded Allergies Type Severity Reaction Last Updated Verified Anesthetics - Amide Type Allergy Severe Anaphylaxis 07/01/17 Yes Penicillins Allergy Mild Nausea 07/01/17 Yes Vital Signs Vital Signs Date Time Temp Pulse Resp B/P (MAP) Pulse Ox O2 Delivery O2 Flow Rate FiO2 10/30/19 11:00 96.8 81 20 134/81 (98) 96 Room Air 96.8 Lab Results Laboratory Tests Test 10/28/19 16:51 10/28/19 20:36 10/29/19 05:00 10/29/19 07:38 Glucose (Fingerstick) 201 mg/dL (70-99) 159 mg/dL (70-99) 195 mg/dL (70-99) White Blood Count 14.3 x10^3/uL (4.0-11.0) Red Blood Count 3.55 x10^6/uL (3.50-5.40) Hemoglobin 9.8 g/dL (12.0-15.5) Hematocrit 30.3 % (36.0-47.0) Mean Corpuscular Volume 85 fL (79-100) Mean Corpuscular Hemoglobin 28 pg (25-35) Mean Corpuscular Hemoglobin Concent 33 g/dL (31-37) Red Cell Distribution Width 14.4 % (11.5-14.5) Platelet Count 93 x10^3/uL (140-400) Neutrophils (%) (Auto) 92 % (31-73) Lymphocytes (%) (Auto) 6 % (24-48) Monocytes (%) (Auto) 2 % (0-9) Eosinophils (%) (Auto) 0 % (0-3) Basophils (%) (Auto) 1 % (0-3) Neutrophils # (Auto) 13.1 x10^3/uL (1.8-7.7) Lymphocytes # (Auto) 0.8 x10^3/uL (1.0-4.8) Monocytes # (Auto) 0.3 x10^3/uL (0.0-1.1) Eosinophils # (Auto) 0.0 x10^3/uL (0.0-0.7) Basophils # (Auto) 0.1 x10^3/uL (0.0-0.2) Sodium Level 139 mmol/L (136-145) Potassium Level 4.0 mmol/L (3.5-5.1) Chloride Level 106 mmol/L (98-107) Carbon Dioxide Level 27 mmol/L (21-32) Anion Gap 6 (6-14) Blood Urea Nitrogen 39 mg/dL (7-20) Creatinine 1.3 mg/dL (0.6-1.0) Estimated GFR (Cockcroft-Gault) 50.9 Glucose Level 183 mg/dL (70-99) Calcium Level 8.4 mg/dL (8.5-10.1) Test 10/29/19 12:17 10/29/19 17:27 10/29/19 20:33 10/30/19 07:31 Glucose (Fingerstick) 195 mg/dL (70-99) 165 mg/dL (70-99) 179 mg/dL (70-99) 198 mg/dL (70-99) Laboratory Tests Test 10/29/19 12:17 10/29/19 17:27 10/29/19 20:33 10/30/19 07:31 Glucose (Fingerstick) 195 mg/dL (70-99) 165 mg/dL (70-99) 179 mg/dL (70-99) 198 mg/dL (70-99) Brief Hospital Course Ms Sargent is a 58yo F w/ PMHx cardiomyopathy with an EF of 30%, secondary pulmonary hypertension, history of mild mental retardation, 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 Chest x-ray revealed diffuse bilateral infiltrates consistent with CHF. No significant pleural effusion seen. Her ABGs initially showed a pH of 6.9, pCO2 of 81 and a pO2 of 66 with bicarbonate of 17 on 100% FiO2. The patient lost her pulse and had one round of CPR in ED, did have ROSC. She was emergently intubated and had right IJ CVC placed for pressor support. She had repeat ABGs which showed a pH of 7.36, pCO2 of 30 and a pO2 of 231 with a bicarbonate of 17. CTPA revealed no evidence of pulmonary embolism, but did show a consolidation in the right upper lobe and lower lobes and also some ground-glass opacities consistent with CHF. Noted initially hypertensive with a systolic blood pressure in the 200s. She was started on nitro drip but quickly became hypotensive. Nitro was stopped and she was started on low-dose Levophed. 10/26: Seen on vent AC mode 18, tidal volume 500 and 100% FiO2 and 12 of PEEP. Off sedation awakens to painful stimuli. Received albumin for creatinine increased to 1.8 after contrast administration yesterday. Blood pressure requiring pressor support changed to dobutamine. 10/27: Seen on vent AC mode tidal volume 500, 5 of PEEP, 40% FiO2. Creatinine 1.7. Awakens to painful stimuli. On patient AICD interrogation she was noted with 28 minutes of slow V. tach on 10/26/2019 that did not trigger shock due to not crossing the threshold. I discussed with cardiology to initiate amiodarone therapy 10/28: Afebrile. Seen in ICU. Extubated 10/28/2019. She relates to me that she has been off her medications since May because she was not able to follow-up with cardiology at [facility] due to to patient visit restrictions related COVID-19. Cr 1.3. Afebrile. Breathing better, was on her home bipap settings overnight. Labs stabilized Consults: Pulm, Cardiology Problem list: Right upper and bilateral lower lobe dense consolidations with bilateral ground glass opacities, concerning for pneumonia, edema or ARDS. Acute hypercapnic, hypoxic resp failure CARDIOMYOPATHY ON ECHO 2018, left ventricular systolic function is moderately impaired. EF 30-35% moderate global hypokinesis pacemaker lead in the right ventricle. -echocardiogram.reviewed. EF 45% post cardiac arrest in er Cardiogenic shock SYED - vasomotor nephropathy Thrombocytopenia Leukocytosis Ventricular tachycardia Acute respiratory failure with acute CHF and cardiomyopathy and aspiration pneumonia. Pulmonary following. Covid negative Acute on chronic diastolic/systolic CHF: VT as a contributing factor. VT; known hx. Interrogation revealed sustained episode in 10/25 for 28 minutes. Its below treatment range so no shock delivery. No further recurrence - on corlanor at home not in hospital formulary. rate better on amio, will defer to cardiology for discharge med Amio CAD: known nonobstructive. Recent stress test without perfusion defect. Hypertension; controlled Hyperlipidemia; not on goal Diabetes, II BRIAN: uses CPAP at home. Elevated troponin: 0.2. EKG paced rhythm without acute changes, suspect demand mediated Bi-V [employer]ED [employer]ER-D ([employer]).in situ: normal device with 98% V pacing and 8.3% atrial pacing. 3.6 yr battery life. V pacing Plan: Cont Amiodarone per cardiology Restarted home medications D/c home with home health Greater than 30 minutes spent on d/c Discharge Information Condition at Discharge: Improved Follow Up: Weeks (1) Disposition/Orders: D/C to Home w/ HH Scheduled Aspirin (Aspir 81) 81 Mg Tablet., 1 TAB PO DAILY, #30 Ref 5 (Reported) Entered as Reported by: SOFIA YOU on 09/01/14 1415 Last Action: Continued on 10/26/19 145 by PIYUSH HOLDEN MD Atorvastatin Calcium (Atorvastatin Calcium) 80 Mg Tablet, 80 MG PO DAILY for FOR HIGH CHOLESTEROL for 90 Days, #90 Prescribed by: SEGUNDO HERNANDEZ MD on 10/30/19 1143 Bumetanide (Bumetanide) 1 Mg Tablet, 1 TAB PO DAILY for chf for 90 Days, #90 Ref 1 Prescribed by: SEGUNDO HERNANDEZ MD on 10/30/19 1143 Carvedilol (Carvedilol) 25 Mg Tablet, 25 MG PO BIDWMEALS for CARDIAC for 90 Days, #180 Prescribed by: SEGUNDO HERNANDEZ MD on 10/30/19 1143 Ivabradine HCl (Corlanor) 7.5 Mg Tablet, 1 TAB PO BID for cardiomegaly for 30 Days, #60 Ref 0 (Reported) Entered as Reported by: ISABEL TA on 03/09/19 1207 Last Action: HELD on 10/26/19 145 by PIYUSH HOLDEN MD Levofloxacin (Levaquin) 500 Mg Tablet, 1 TAB PO DAILY for Pneumonia for 5 Days, #5 Ref 0 Prescribed by: SEGUNDO HERNANDEZ MD on 10/30/19 1143 Prednisone (Prednisone) 20 Mg Tablet, 1 TAB PO DAILY for Pneumonia for 5 Days, #5 Prescribed by: SEGUNDO HERNANDEZ MD on 10/30/19 1143 Sacubitril/Valsartan (Entresto 49 mg-51 mg Tablet) 1 Each Tablet, 1 TAB PO BID for CHF for 90 Days, #180 Prescribed by: SEGUNDO HERNANDEZ MD on 10/30/19 1143 Spironolactone (Spironolactone) 25 Mg Tablet, 1 TAB PO DAILY for CHF for 90 Days, #90 Ref 1 Prescribed by: SEGUNDO HERNANDEZ MD on 10/30/19 1143 Discontinued Medications Potassium Chloride (Klor-Con 10) 10 Meq Tablet.er, 1 TAB PO DAILY for maintenance for 30 Days, #30 Ref 0 (Reported) Entered as Reported by: ISABEL TA on 03/09/191206 Last Action: Converted on 10/26/191449 by PIYUSH HOLDEN MD Sacubitril/Valsartan (Entresto 97 mg-103 mg Tablet) 1 Each Tablet, 1 EACH PO BID for CHF, (Reported) Entered as Reported by: ISABEL TA on 03/09/191206 Last Action: Converted on 10/26/191449 by PIYUSH HOLDEN MD Justicifation of Admission Dx: Justifications for Admission: Justification of Admission Dx: Yes CHF: Cardiac Arrhythmias Respiratory Failure: Mechanical Ventilation Aspiration Pneumonia: Hemodynamic Instability Sepsis: Altered Mental Status Altered Mental Status: Altered Mental Status SEGUNDO HERNANDEZ MD Oct 30, 2019 12:00
--- NOTE | 2019-10-30 12:02 | PDOC ---
PULMONARY PROGRESS NOTES DATE: 10/30/19 TIME: 12:00 Subjective PT. extubated 10/28/2019, now on room air NO CP, NO SOA, No increased cough wore BIPAP last night Vitals Vital Signs Date Time Temp Pulse Resp B/P (MAP) Pulse Ox O2 Delivery O2 Flow Rate FiO2 10/30/19 11:00 96.8 81 20 134/81 (98) 96 Room Air 96.8 ROS: No Nausea, No Chest Pain, No Abdominal Pain, No Increase Cough General: Alert, No acute distress Lungs: Clear Cardiovascular: S1 Abdomen: Soft Neuro Exam: Alert Extremities: Other (1+edema) Skin: Warm, Dry Labs Laboratory Tests Test 10/28/19 16:51 10/28/19 20:36 10/29/19 05:00 10/29/19 07:38 Glucose (Fingerstick) 201 mg/dL (70-99) 159 mg/dL (70-99) 195 mg/dL (70-99) White Blood Count 14.3 x10^3/uL (4.0-11.0) Red Blood Count 3.55 x10^6/uL (3.50-5.40) Hemoglobin 9.8 g/dL (12.0-15.5) Hematocrit 30.3 % (36.0-47.0) Mean Corpuscular Volume 85 fL (79-100) Mean Corpuscular Hemoglobin 28 pg (25-35) Mean Corpuscular Hemoglobin Concent 33 g/dL (31-37) Red Cell Distribution Width 14.4 % (11.5-14.5) Platelet Count 93 x10^3/uL (140-400) Neutrophils (%) (Auto) 92 % (31-73) Lymphocytes (%) (Auto) 6 % (24-48) Monocytes (%) (Auto) 2 % (0-9) Eosinophils (%) (Auto) 0 % (0-3) Basophils (%) (Auto) 1 % (0-3) Neutrophils # (Auto) 13.1 x10^3/uL (1.8-7.7) Lymphocytes # (Auto) 0.8 x10^3/uL (1.0-4.8) Monocytes # (Auto) 0.3 x10^3/uL (0.0-1.1) Eosinophils # (Auto) 0.0 x10^3/uL (0.0-0.7) Basophils # (Auto) 0.1 x10^3/uL (0.0-0.2) Sodium Level 139 mmol/L (136-145) Potassium Level 4.0 mmol/L (3.5-5.1) Chloride Level 106 mmol/L (98-107) Carbon Dioxide Level 27 mmol/L (21-32) Anion Gap 6 (6-14) Blood Urea Nitrogen 39 mg/dL (7-20) Creatinine 1.3 mg/dL (0.6-1.0) Estimated GFR (Cockcroft-Gault) 50.9 Glucose Level 183 mg/dL (70-99) Calcium Level 8.4 mg/dL (8.5-10.1) Test 10/29/19 12:17 10/29/19 17:27 10/29/19 20:33 10/30/19 07:31 Glucose (Fingerstick) 195 mg/dL (70-99) 165 mg/dL (70-99) 179 mg/dL (70-99) 198 mg/dL (70-99) Laboratory Tests Test 10/29/19 12:17 10/29/19 17:27 10/29/19 20:33 10/30/19 07:31 Glucose (Fingerstick) 195 mg/dL (70-99) 165 mg/dL (70-99) 179 mg/dL (70-99) 198 mg/dL (70-99) Medications Active Scripts Medications Dose Route/Sig Max Daily Dose Days Date Category Entresto 97 mg-103 mg Tablet (Sacubitril/Valsartan) 1 Each Tablet 1 Each PO BID 03/09/19 Reported Corlanor (Ivabradine HCl) 7.5 Mg Tablet 1 Tab PO BID 30 03/09/19 Reported Klor-Con 10 (Potassium Chloride) 10 Meq Tablet.er 1 Tab PO DAILY 30 03/09/19 Reported Carvedilol 25 Mg Tablet 25 Mg PO BIDWMEALS 03/09/19 Reported Bumetanide 1 Mg Tablet 1 Tab PO DAILY 03/09/19 Reported Atorvastatin Calcium 80 Mg Tablet 80 Mg PO DAILY 03/09/19 Reported Spironolactone 25 Mg Tablet 1 Tab PO DAILY 09/01/14 Reported Aspir 81 (Aspirin) 81 Mg Tablet.dr 1 Tab PO DAILY 09/01/14 Reported Comments CXR 10/30/2019 IMPRESSION: 1. Improved vascular congestion. 2. Lungs are now clear. 3. Central line unchanged. Impression . IMPRESSION: 1. Acute hypoxic and hypercapnic respiratory failure secondary to cardiac arrest and likely cardiogenic shock.off pressor-- off pressors, now resolved 2. Diffuse lung infiltrates. Combination of congestive heart failure and aspiration pneumonia. CT chest shows consolidation in the right upper lobe and lower lobes, which may be related to aspiration of secretions. much improved 3. Brief CPR with one round of ACLS protocol. 4. History of known cardiomyopathy with an EF of 30%. 5. No significant tobacco history. 6. Lactic acidosis secondary to hypotension and diminished perfusion.-resolved 7. SYED--improving Plan . Cont. R/A, and CPAP at night and PRN with napping, extubated on 10/28/2019 D/C ABX D/C steroids Follow cardiology recommendations. COVID neg Follow cardiology recommendations---echocardiogram.reviewed. EF 45% HTN per cardiology and PCP Discussed with MEÑO hoffmann to D/C home from our stand point AMINA ROGERS MD Oct 30, 2019 12:02
--- NOTE | 2019-10-30 12:07 | NUR ---
SS following up with discharge planning. SS reviewed pt chart and discussed with pt RN. Pt is currently on room air. Discharge orders for home healthcare received. SS met with pt and discussed home healthcare. Pt reported that she has had [facility]. SS phoned and faxed discharge orders and referral to [facility]. SS will continue to follow for discharge planning. Addendum: 10/30/19 at 1211 by JOSSIE GARCIA [facility], ; fax [phone].
[2019-10-30] MEDS ORDERED: AMIO200T7 PO (12:18)
--- NOTE | 2019-10-30 12:32 | NUR ---
Discharge Note: DALY HU [address] Discharge instructions and discharge home medications reviewed with Patient and a copy given. All questions have been answered and understanding verbalized. The following instructions and handouts were given: patient visit report, medication information, education. Discontinued lines and drains: central line, tip intact. Patient discharged to home with home health via private vehicle. Patient left unit awake, in stable condition, with all personal belongings.
== END 2019-10-30 12:30 | disposition home health service (06) | DRG 871 ==
LOC: ER 11:48 → 1 WEST ICU 14:30 → 2 SOUTH 10-29 14:25
PROVIDERS: ADMIT Family Medicine; ATTEND Family Medicine
PROC: 5A1945Z Respiratory Ventilation, 24-96 Consecutive Hours (ICD-10-PCS; principal; 2019-10-26)
PROC: 5A09357 Assistance with Respiratory Ventilation, Less than 24 Consecutive Hours, Continuous Positive Airway Pressure (ICD-10-PCS; 2019-10-26)
PROC: 0BH17EZ Insertion of Endotracheal Airway into Trachea, Via Natural or Artificial Opening (ICD-10-PCS; 2019-10-26)
PROC: 02HV33Z Insertion of Infusion Device into Superior Vena Cava, Percutaneous Approach (ICD-10-PCS; 2019-10-26)
PROC: B548ZZA Ultrasonography of Superior Vena Cava, Guidance (ICD-10-PCS; 2019-10-26)
PROC: 5A09357 Assistance with Respiratory Ventilation, Less than 24 Consecutive Hours, Continuous Positive Airway Pressure (ICD-10-PCS; 2019-10-27)
PROC: 5A12012 Performance of Cardiac Output, Single, Manual (ICD-10-PCS; 2019-10-27)
PROC: 5A09357 Assistance with Respiratory Ventilation, Less than 24 Consecutive Hours, Continuous Positive Airway Pressure (ICD-10-PCS; 2019-10-29)
DX: A41.9 Sepsis, unspecified organism (principal); J96.01 Acute respiratory failure with hypoxia; J69.0 Pneumonitis due to inhalation of food and vomit; N17.0 Acute kidney failure with tubular necrosis; R57.0 Cardiogenic shock; J96.02 Acute respiratory failure with hypercapnia; I50.43 Acute on chronic combined systolic (congestive) and diastolic (congestive) heart failure; I47.2 Ventricular tachycardia; I42.8 Other cardiomyopathies; I11.0 Hypertensive heart disease with heart failure; D69.6 Thrombocytopenia, unspecified; E11.9 Type 2 diabetes mellitus without complications; E66.01 Morbid (severe) obesity due to excess calories; E78.5 Hyperlipidemia, unspecified; F70 Mild intellectual disabilities; G47.33 Obstructive sleep apnea (adult) (pediatric); I25.10 Atherosclerotic heart disease of native coronary artery without angina pectoris; I27.29 Other secondary pulmonary hypertension; Z20.828 Contact with and (suspected) exposure to other viral communicable diseases; Z68.37 Body mass index [BMI] 37.0-37.9, adult; Z82.49 Family history of ischemic heart disease and other diseases of the circulatory system; Z86.718 Personal history of other venous thrombosis and embolism; K21.9 Gastro-esophageal reflux disease without esophagitis; Z88.0 Allergy status to penicillin; Z88.8 Allergy status to other drugs, medicaments and biological substances
CPT/HCPCS: 31500; 36415; 36556; 36600; 71045; 71275; 74018; 80048; 80053; 80061; 82728; 82803; 82805; 82962; 83605; 83880; 84443; 84484; 85007; 85025; 85610; 85730; 87040; 92950; 93005; 93306; 94002; 94003; 94660; 96365; 96366; 96375; 99285; J0171; J0282; J0360; J0692; J1250; J1644; J1815; J1940; J1956; J2250; J2405; J2704; J2930; J3010; J3370; J3480; J3490; J7040; J7060; P9041; Q9967; G0378; U0003-CS